=== PATIENT | male | born 1960 | race Caucasian/White ===

== ENCOUNTER 2017-11-29 20:12 | Inpatient (IN) | payer OTHER ==
[2017-11-29 21:35] LABS: ALT (SGPT) 41 U/L (8-55); AST (SGOT) 48 U/L (5-34); Albumin 4.2 g/dL (3.5-5.0); Alkaline Phosphatase 86 U/L (40-150); Anion Gap 15 mmol/L (10-20); BUN (Urea Nitrogen) 30 mg/dL (8.4-25.7); CK (CPK) 50 U/L (30-200); Calc. Creatinine Clearance 0 mL/min (70-130); Calcium 8.9 mg/dL (7.8-10.44); Carbon Dioxide 22 mmol/L (22-29); Chloride 102 mmol/L (98-107); Estimated GFR-MDRD 56; Globulin 1.7 g/dL (2.4-3.5); Glucose 115 mg/dL (70-105); Magnesium 2.5 mg/dL (1.6-2.6); Protein, Total 5.9 g/dL (6.0-8.3); Sodium 135 mmol/L (136-145)
[2017-11-29 21:42] LABS: CKMB 0.5 ng/mL (0-6.6)
[2017-11-29 22:18] LABS: Hemoglobin 4.7 g/dL (14.0-18.0); Mean Corpuscular HGB CONC 31.8 g/dL (32.0-36.0); Mean Corpuscular Hemoglobin 38.9 pg (27.0-31.0); Mean Platelet Volume 10.4 fL (7.4-10.4); Platelet Count 124 thou/uL (130-400); RBC Distribution Width 24.4 % (11.5-14.5); Red Blood Cell (RBC) Count 1.21 mill/uL (4.70-6.10)
[2017-11-29 22:19] LABS: INR-International Normal Ratio 1.2; Prothrombin Time 15.1 SEC (12.0-14.7)
[2017-11-29 22:28] LABS: PTT 22.4 SEC (22.9-36.1)
[2017-11-29 22:52] LABS: Anisocytosis MARKED = >30 cells (100X) (0-5/hpf); Band 9 % (5-11); Differential Comment Immature Cell(s); Eosinophils 1 % (0-10); Lymphocytes 32 % (21-51); MDiff Complete? YES; Macrocytosis MODERATE=16-30 cells (100X) (0-5/hpf); Monocytes 1 % (0-10); Myelocyte 2 % (0-0); Neutrophil 53 % (42-75); Nucleated RBC 63 % (0); Polychromasia MARKED = >4 cells (100X) (0-2/hpf); Reflex for Review?? YES
[2017-11-29 22:54] LABS: White Blood Cell (WBC) Count 17.1 thou/uL (4.8-10.8)
[2017-11-30] MEDS ORDERED: Pantoprazole 40 MG VIAL ONE (00:50)
[2017-11-30] MEDS ORDERED: methylPREDNISolone Sod Succ/PF 125 MG/2 ML VIAL ONE (00:50)
[2017-11-30] MEDS ORDERED: Water For Inject, Bacteriostat 30 ML ONE (00:51)
[2017-11-30 01:47] LABS: Bilirubin Negative (Negative); Blood, Urine Negative (Negative); Clarity CLEAR (Clear); Glucose, Urine (Dipstick) Negative (Negative); Leukocyte Negative (Negative); Nitrite Negative (Negative); Protein, Urine (Dipstick) Negative (Neg-Trace); Specific Gravity, Urine 1.016 (1.002-1.036)
[2017-11-30 01:48] LABS: Reticulocyte Count 24.7 % (0.5-1.5)
[2017-11-30 02:51] VITALS: BMI 33.5
[2017-11-30] MEDS ORDERED: Ondansetron HCl/PF 4 MG/2 ML Vial IVP PRN ×2 (02:55→10:39)
[2017-11-30] MEDS ORDERED: Acetaminophen 325 MG TAB PO PRN ×2 (02:55→10:39)
[2017-11-30] MEDS ORDERED: Ondansetron ODT 4 MG TAB SL PRN (02:55)
[2017-11-30 05:29] LABS: Folate (Folic Acid) 13.8 ng/mL (7.0-31.4)
[2017-11-30] MEDS ORDERED: methylPREDNISolone Sod Succ/PF 125 MG/2 ML VIAL IVP SCH (09:00)
[2017-11-30] MEDS ORDERED: Prevnar 13-Val Conj/PF 0.5 ML SYRINGE IM ONE (09:00)
[2017-11-30] MEDS ORDERED: Sodium Chloride 0.9% 10 ML ONE (09:33)
[2017-11-30] MEDS: Pantoprazole 40 MG VIAL IVP SCH (09:38)
[2017-11-30 09:49] LABS: ALT (SGPT) 36 U/L (8-55); AST (SGOT) 38 U/L (5-34); Alkaline Phosphatase 85 U/L (40-150); Anion Gap 16 mmol/L (10-20); BUN (Urea Nitrogen) 30 mg/dL (8.4-25.7); Bilirubin, Total 1.8 mg/dL (0.2-1.2); Calc. Creatinine Clearance 99 mL/min (70-130); Calcium 8.5 mg/dL (7.8-10.44); Carbon Dioxide 19 mmol/L (22-29); Chloride 103 mmol/L (98-107); Estimated GFR-MDRD 52; Globulin 1.6 g/dL (2.4-3.5); Glucose 294 mg/dL (70-105); Potassium 4.5 mmol/L (3.5-5.1); Protein, Total 5.6 g/dL (6.0-8.3); Sodium 133 mmol/L (136-145)
[2017-11-30 10:02] LABS: Hemoglobin 4.4 g/dL (14.0-18.0); Mean Corpuscular HGB CONC 30.2 g/dL (32.0-36.0); Mean Corpuscular Hemoglobin 37.9 pg (27.0-31.0); Platelet Count 132 thou/uL (130-400); RBC Distribution Width 25.6 % (11.5-14.5); Red Blood Cell (RBC) Count 1.17 mill/uL (4.70-6.10)
[2017-11-30] MEDS ORDERED: Guaifenesin DM 100-10/5 ML UDCUP PO PRN (10:39)
[2017-11-30 10:58] LABS: Band 18 % (5-11); Large Platelets SLIGHT; Lymphocytes 19 % (21-51); MDiff Complete? YES; Macrocytosis MODERATE=16-30 cells (100X) (0-5/hpf); Monocytes 5 % (0-10); Myelocyte 1 % (0-0); Neutrophil 57 % (42-75); Nucleated RBC 88 % (0); PLT Morphology Comment Appears Adequate; Polychromasia MARKED = >4 cells (100X) (0-2/hpf)
--- NOTE | 2017-11-30 11:13 | RAD ---
CHEST TWO VIEWS: History: Evaluate for infection. Comparison: 02-10-11 FINDINGS: Two views of the chest. Normal cardiac silhouette. The pulmonary vessels and hilum are normal. Costop hrenic angels are clear. No mass. No consolidation. No pneumothorax or osseous abnormality. IMPRESSION: No acute cardiopulmonary process. POS: [facility]
--- NOTE | 2017-11-30 12:11 | HP ---
REASON FOR ADMISSION: Hemolytic anemia, leukocytosis, and severe anemia. HISTORY OF PRESENT ILLNESS: The patient gives a history of feeling dizzy and weak from Tuesday. No complaints of chest pain or palpitations. No complaints of cough or expectoration or fever. No flu-like illness. The patient went to [facility] yesterday evening and was found to have had hemoglobin of 5. He was transferred here for higher level of care. Patient has history of ITP and follows up with Dr. Simon. No bleeding per rectum. PAST MEDICAL AND SURGICAL HISTORY: 1. History of ITP, which was well controlled on Rituxan, the last dose he had was in 2008 or 2010, which he cannot recall. 2. Hypertension. 3. Left lazy eye surgery. CURRENT MEDICATION: Lisinopril 20 mg daily. ALLERGIES: No known drug allergies. PERSONAL HISTORY: Chews tobacco. Drinks on social occasions. Does not abuse drugs. Lives with his . 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 FAMILY HISTORY: Mom of a lung cancer at the age of 83 years. Father in his 80s and has had history of diabetes and CHF. He has a half-brother, who has kidney stones. No history of hematological malignancies as far as patient knows in his immediate family members. CODE STATUS: FULL. 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 REVIEW OF SYSTEMS: The following complete review of systems was negative, unless otherwise mentioned in the HPI or below: Constitutional: Weight loss or gain, ability to conduct usual activities. Skin: Rash, itching. Eyes: Double vision, pain. ENT/Mouth: Nose bleeding, neck stiffness, pain, tenderness. Cardiovascular: Palpitations, dyspnea on exertion, orthopnea. Respiratory: Shortness of breath, wheezing, cough, hemoptysis, fever, or night sweats. Gastrointestinal: Poor appetite, abdominal pain, heartburn, nausea, vomiting, constipation, or diarrhea. Genitourinary: Urgency, frequency, dysuria, nocturia. Musculoskeletal: Pain, swelling. Neurologic/Psychiatric: Anxiety, depression. Allergy/Immunologic: Skin rash, bleeding tendency. PHYSICAL EXAMINATION: GENERAL: The patient is a 56-year-old male, who is currently not in any acute distress. VITAL SIGNS: Blood pressure 126/50, pulse 84 per minute, respiratory rate 20 per minute, temperature 98.5 degrees Fahrenheit, saturating 96% on room air. NECK: Supple, no elevated JVD. HEENT: Extraocular muscles intact. Pupils reacting to light. Oral cavity mucous membranes are moist. There is scleral icterus plus. No exudates or congestion in the oral cavity. CARDIOVASCULAR SYSTEM: S1, S2 heard. Regular rhythm. RESPIRATORY SYSTEM: Air entry 1+ bilateral. EXTREMITIES: No ischemic ulcerations or gangrene. CENTRAL NERVOUS SYSTEM: No gross focal deficits seen. Patient is alert, awake , oriented well. PSYCHIATRIC SYSTEM: The patient's mood is euthymic. No hallucinations or delusions. LABORATORY AND X-RAY FINDINGS: H and H 4.4 and 14, platelet count is 132. Had an initial white count of 47.9 at 2:43 p.m. yesterday in [place] with H and H of 6.5 and 45. He has 53% neutrophils, 18% bands, and 19% lymphocytes. Nucleated RBCs are 88. Also has a high retic count of 24.7, MCV is 122, MCHC is 32, RDW is 25, serum bicarbonate 19, BUN 30, creatinine 1.4, glucose is 294. Initial serum glucose was 115, likely due to steroids. Total bilirubin 3.0, AST 48, ALT 41, alkaline phosphatase 86. One set of cardiac enzymes are negative. LDH is elevated at 846. Albumin is 4.2. BNP is 36. Vitamin B12 457. Folic acid 13.8. EKG done shows normal sinus rhythm at 83 beats per minute. Chest x-ray, by my review, shows no acute infiltrate. His direct antiglobulin test is positive. His antibody screen is also positive. CLINICAL IMPRESSION AND PLAN: The patient will be admitted to oncology floor for severe anemia with direct Sonya test being positive and elevated LDH, haptoglobin is pending at present. He is on Solu-Medrol 60 mg IV q.12 hourly and Protonix 40 mg IV daily. A nuclear medicine scan to see for accessory spleen has been ordered by Oncology group. I did speak to Dr. Simon. They will make a decision whether to transfer him or to continue monitoring him here. We will also obtain acute hepatitis panel, HIV, and LISA with reflex, echo with 2D Doppler in view of wide pulse pressure. Two units of packed cell blood transfusion has been ordered from the ER from last night, but there is a delay in procuring blood due to antibodies. We will continue to closely monitor him. ORQUIDEA
--- NOTE | 2017-11-30 13:19 | NM ---
NUCLEAR MEDICINE LIVER SPLEEN SCAN: 11/30/2017 HISTORY: A 56-year-old male, status post splenectomy and hemolytic anemia. COMPARISON: Liver/spleen scan from 02/11/2011. TECHNIQUE: 5 millicuries of technetium 99m- sulfur colloid was injected IV. Multiple view scintigraphic images of the abdomen. 2 scintigraphic views of the pelvis. FINDINGS: There is homogeneous uptake in the liver. No evidence of hepatomegaly. No splenic tissue is visuali zed. No evidence of splenules. No interval change overall. IMPRESSION: 1. Absence of the spleen and absence of splenules. 2. No interval change since 02/11/2011. POS: [facility]
[2017-11-30] MEDS ORDERED: predniSONE 50 MG TAB PO SCH (15:00)
[2017-11-30 15:38] LABS: HBCM Index 0.06 S/CO (0-0.79); HBSAg Index 0.22 S/CO (0-0.99); HIV (1/2) Antibody/Antigen Non-Reactive (NonReactive); HIV 1/2 INDEX 0.36 S/CO (<1.00); Hep A IgM AB Non-Reactive (NonReactive); Hep B Surf Ag Non-Reactive S/CO (NonReactive); Hep C IgG Ab Non-Reactive (NonReactive); Hep C Index 0.04 S/CO (0-0.79); Hepatitis B Core IGM Abs Non-Reactive (NonReactive)
[2017-11-30] MEDS: predniSONE 20 MG TAB PO SCH ×2 (17:11→22:00)
[2017-11-30 19:36] LABS: Hemoglobin 4.6 g/dL (14.0-18.0)
[2017-12-01 06:30] LABS: ALT (SGPT) 30 U/L (8-55); AST (SGOT) 32 U/L (5-34); Albumin 3.9 g/dL (3.5-5.0); Alkaline Phosphatase 80 U/L (40-150); Anion Gap 13 mmol/L (10-20); BUN (Urea Nitrogen) 28 mg/dL (8.4-25.7); Bilirubin, Total 1.3 mg/dL (0.2-1.2); Calc. Creatinine Clearance 112 mL/min (70-130); Calcium 8.5 mg/dL (7.8-10.44); Carbon Dioxide 23 mmol/L (22-29); Chloride 105 mmol/L (98-107); Estimated GFR-MDRD 60; Globulin 1.6 g/dL (2.4-3.5); Glucose 215 mg/dL (70-105); Potassium 4.8 mmol/L (3.5-5.1); Protein, Total 5.5 g/dL (6.0-8.3); Sodium 136 mmol/L (136-145)
[2017-12-01 06:46] LABS: Hemoglobin 4.5 g/dL (14.0-18.0); Mean Corpuscular HGB CONC 29.8 g/dL (32.0-36.0); Mean Corpuscular Hemoglobin 38.7 pg (27.0-31.0); Mean Platelet Volume 11.7 fL (7.4-10.4); Platelet Count 66 thou/uL (130-400); RBC Distribution Width 26.8 % (11.5-14.5); Red Blood Cell (RBC) Count 1.17 mill/uL (4.70-6.10)
[2017-12-01 07:04] LABS: Band 5 % (5-11); Lymphocytes 25 % (21-51); Metamyelocyte 2 % (0-0); Monocytes 4 % (0-10); Neutrophil 64 % (42-75); Nucleated RBC 51 % (0)
[2017-12-01 07:06] LABS: Hypochromia SLIGHT = 6-15 cells (100X) (0-5/hpf); Macrocytosis MODERATE=16-30 cells (100X) (0-5/hpf); Polychromasia MODERATE = 3-4 cells (100X) (0-2/hpf)
[2017-12-01 07:07] LABS: PLT Morphology Comment Appears Decreased
[2017-12-01 07:10] LABS: White Blood Cell (WBC) Count 23.4 thou/uL (4.8-10.8)
[2017-12-01 07:14] LABS: MDiff Complete? YES
[2017-12-01 07:40] LABS: Reticulocyte Count 32.4 % (0.5-1.5)
[2017-12-01 07:51] LABS: LDH 828 U/L (125-220)
[2017-12-01] MEDS: Multivitamin W/ Minerals 1 TAB PO SCH (08:34)
[2017-12-01] MEDS: predniSONE 20 MG TAB PO SCH ×3 (08:34→20:54)
[2017-12-01] MEDS: Pantoprazole 40 MG VIAL IVP SCH (08:35)
[2017-12-01] MEDS ORDERED: diphenhydrAMINE 25 MG in Sodium Chloride 0.9% 50 ML IVPB PRN (09:00)
[2017-12-01] MEDS ORDERED: Acetaminophen 500 MG TAB PO SCH (09:00)
[2017-12-01] MEDS ORDERED: Lisinopril 20 MG TAB PO SCH (09:00)
--- NOTE | 2017-12-01 11:16 | PDOC.PN ---
- Subjective Encounter Start Date: 12/01/17 Encounter Start Time: 10:45 Subjective: no sob or bleeding anywhere -: no new complaints - Objective Resuscitation Status: Resuscitation Status FULL:Full Resuscitation MAR Reviewed: Yes Vital Signs & Weight: Vital Signs (12 hours) Temp Pulse Resp BP Pulse Ox 12/01/17 08:00 98.1 F 76 16 130/61 95 12/01/17 04:00 98.2 F 80 16 129/58 L 96 Weight Admit Weight 261 lb 7 oz Weight 261 lb 3.964 oz I&O: 11/30/17 12/01/17 12/02/17 06:59 06:59 06:59 Intake Total 1170 Output Total 2350 Balance -1180 Result Diagrams: 12/01/17 05:51 12/01/17 05:51 Phys Exam - Physical Examination HEENT: PERRLA, moist MMs Neck: no JVD, supple Respiratory: no wheezing, no rales Cardiovascular: RRR, no significant murmur Gastrointestinal: soft, non-tender, positive bowel sounds Musculoskeletal: no edema, pulses present Neurological: non-focal, moves all 4 limbs Psychiatric: normal affect, A&O x 3 Dx/Plan (1) Hemolytic anemia Code(s): D58.9 - HEREDITARY HEMOLYTIC ANEMIA, UNSPECIFIED Status: Acute Qualifiers: Hemolytic anemia type: acquired, autoimmune, other Qualified Code(s): D59.1 - Other autoimmune hemolytic anemias (2) Severe anemia Code(s): D64.9 - ANEMIA, UNSPECIFIED Status: Acute (3) H/O idiopathic thrombocytopenic purpura Code(s): Z86.2 - PRSNL HISTORY OF DIS OF THE BLD/BLD-FORM ORG/IMMUN MECHNSM Status: Chronic (4) HTN (hypertension) Code(s): I10 - ESSENTIAL (PRIMARY) HYPERTENSION Status: Chronic Qualifiers: Hypertension type: essential hypertension Qualified Code(s): I10 - Essential (primary) hypertension - Plan hospital is trying to get his rituxan for today -: has not recieved any blood products yet per onc advice -: has high retic count and +ve irene -: platelets are trending down this am in addition to Hb -: mgmt per onc advice, on prednisone 60mg tid * . Review of Systems - Medications/Allergies Allergies/Adverse Reactions: Allergies Allergy/AdvReac Type Severity Reaction Status Date / Time No Known Allergies Allergy Unverified 11/30/17 02:30 Medications: Current Medications Acetaminophen (Tylenol) 650 mg PO Q4H PRN PRN Reason: Headache/Fever or Pain Acetaminophen (Tylenol) 1,000 mg PO ONE SUHAS Stop: 12/01/17 23:00 Guaifenesin/Dextromethorphan (Robitussin Dm) 15 ml PO Q4H PRN PRN Reason: Cough Diphenhydramine HCl 25 mg/ (Sodium Chloride) 50.5 mls @ 151.5 mls/hr IVPB ONE PRN PRN Reason: Itching & Insomnia Stop: 12/01/17 17:00 Rituximab 896 mg/ Sodium (Chloride) 589.6 mls @ 0 mls/hr IVPB ONE SUHAS PRN Reason: As Directed Stop: 12/01/17 23:59 Iron/Minerals/Multivitamins (Theragran M) 1 tab PO DAILY [facility] Last Admin: 12/01/17 08:34 Dose: 1 tab Ondansetron HCl (Zofran) 4 mg IVP Q6H PRN PRN Reason: Nausea/Vomiting Pantoprazole Sodium (Protonix) 40 mg IVP DAILY [facility] Last Admin: 12/01/17 08:35 Dose: 40 mg Prednisone (Prednisone) 60 mg PO TID [facility] Last Admin: 12/01/17 08:34 Dose: 60 mg Sodium Chloride (Flush - Normal Saline) 10 ml IVF Q12HR [facility] Last Admin: 11/30/17 20:31 Dose: 10 ml Sodium Chloride (Flush - Normal Saline) 10 ml IVF PRN PRN PRN Reason: Saline Flush
[2017-12-01 11:22] LABS: Antinuclear AB Negative (Negative)
[2017-12-01] MEDS ORDERED: SODIUM CHLORIDE 0.9% IVPB SCH ×2 (12:00)
[2017-12-01] MEDS ORDERED: Rituximab 100 MG in Sodium Chloride 0.9% 100 ML IVPB SCH (12:00)
[2017-12-01] MEDS ORDERED: RITUXIMAB IVPB SCH ×2 (12:00)
[2017-12-01 19:53] LABS: Hemoglobin 4.8 g/dL (14.0-18.0)
[2017-12-02 05:31] LABS: Mean Corpuscular HGB CONC 30.7 g/dL (32.0-36.0); Mean Corpuscular Hemoglobin 41.1 pg (27.0-31.0); Platelet Count 36 thou/uL (130-400); RBC Distribution Width 26.1 % (11.5-14.5); Red Blood Cell (RBC) Count 1.23 mill/uL (4.70-6.10)
[2017-12-02 05:50] LABS: Band 6 % (5-11); Lymphocytes 21 % (21-51); MDiff Complete? YES; Microcytosis MODERATE=15-30 cells (100X) (0-5/hpf); Monocytes 2 % (0-10); Myelocyte 1 % (0-0); Neutrophil 70 % (42-75); Nucleated RBC 121 % (0); Ovalocytes SLIGHT = 2-5 cells (100X) (0-1/hpf); PLT Morphology Comment Appears Decreased; Polychromasia MARKED = >4 cells (100X) (0-2/hpf); Tear Drops SLIGHT = 2-5 cells (100X) (0-1/hpf)
[2017-12-02 07:07] LABS: White Blood Cell (WBC) Count 26.3 thou/uL (4.8-10.8)
[2017-12-02] MEDS: predniSONE 20 MG TAB PO SCH ×3 (08:07→20:32)
[2017-12-02] MEDS: Pantoprazole 40 MG VIAL IVP SCH (08:08)
[2017-12-02] MEDS: Multivitamin W/ Minerals 1 TAB PO SCH (08:08)
[2017-12-02 08:20] LABS: A/G Ratio 2.3 (0.7-1.7); Albumin 3.7 g/dL (2.9-4.4); Alpha 1 0.3 g/dL (0.0-0.4); Alpha 2 0.5 g/dL (0.4-1.0); Beta 0.7 g/dL (0.7-1.3); Gamma 0.2 g/dL (0.4-1.8); Globulin, Total 1.6 g/dL (2.2-3.9); M-Spike Not Observed g/dL (Not Observed)
[2017-12-02 09:13] LABS: Hemoglobin 5.3 g/dL (14.0-18.0)
--- NOTE | 2017-12-02 14:37 | PDOC.PN ---
- Subjective Encounter Start Date: 12/02/17 Encounter Start Time: 10:00 Subjective: no sob or abd pain -: no bleeding - Objective Resuscitation Status: Resuscitation Status FULL:Full Resuscitation MAR Reviewed: Yes Vital Signs & Weight: Vital Signs (12 hours) Temp Pulse Resp BP Pulse Ox 12/02/17 11:40 97.7 F 80 24 H 158/70 H 100 12/02/17 08:00 98.1 F 75 20 98 12/02/17 07:20 98.1 F 75 20 140/67 98 Weight Admit Weight 261 lb 7 oz Weight 261 lb 3.964 oz I&O: 12/01/17 12/02/17 12/03/17 06:59 06:59 06:59 Intake Total 1170 750 Output Total 2350 1400 Balance -1180 -650 Result Diagrams: 12/02/17 08:48 12/01/17 05:51 Phys Exam - Physical Examination HEENT: PERRLA, moist MMs Neck: no JVD, supple Respiratory: no wheezing, no rales Cardiovascular: RRR, no significant murmur Gastrointestinal: soft, non-tender, positive bowel sounds Musculoskeletal: no edema, pulses present Neurological: non-focal, moves all 4 limbs Psychiatric: A&O x 3 Dx/Plan (1) Hemolytic anemia Code(s): D58.9 - HEREDITARY HEMOLYTIC ANEMIA, UNSPECIFIED Status: Acute Qualifiers: Hemolytic anemia type: acquired, autoimmune, other Qualified Code(s): D59.1 - Other autoimmune hemolytic anemias (2) Severe anemia Code(s): D64.9 - ANEMIA, UNSPECIFIED Status: Acute (3) H/O idiopathic thrombocytopenic purpura Code(s): Z86.2 - PRSNL HISTORY OF DIS OF THE BLD/BLD-FORM ORG/IMMUN MECHNSM Status: Chronic (4) HTN (hypertension) Code(s): I10 - ESSENTIAL (PRIMARY) HYPERTENSION Status: Chronic Qualifiers: Hypertension type: essential hypertension Qualified Code(s): I10 - Essential (primary) hypertension - Plan is on prednisone 60mg tid -: received one dose of rituxan yesterday -: watch for platelet count, its 33 -: haptoglobin is <10mg and reitc count is 35% -: d/w Ms.Julie Hyde * . Review of Systems - Medications/Allergies Allergies/Adverse Reactions: Allergies Allergy/AdvReac Type Severity Reaction Status Date / Time No Known Allergies Allergy Unverified 11/30/17 02:30 Medications: Current Medications Acetaminophen (Tylenol) 650 mg PO Q4H PRN PRN Reason: Headache/Fever or Pain Guaifenesin/Dextromethorphan (Robitussin Dm) 15 ml PO Q4H PRN PRN Reason: Cough Iron/Minerals/Multivitamins (Theragran M) 1 tab PO DAILY [facility] Last Admin: 12/02/17 08:08 Dose: 1 tab Ondansetron HCl (Zofran) 4 mg IVP Q6H PRN PRN Reason: Nausea/Vomiting Pantoprazole Sodium (Protonix) 40 mg IVP DAILY [facility] Last Admin: 12/02/17 08:08 Dose: 40 mg Prednisone (Prednisone) 60 mg PO TID [facility] Last Admin: 12/02/17 08:07 Dose: 60 mg Sodium Chloride (Flush - Normal Saline) 10 ml IVF Q12HR [facility] Last Admin: 12/02/17 08:10 Dose: 10 ml Sodium Chloride (Flush - Normal Saline) 10 ml IVF PRN PRN PRN Reason: Saline Flush Last Admin: 12/02/17 08:16 Dose: 10 ml
[2017-12-02] MEDS: hydrALAZINE 20 MG/ML VIAL SLOW IVP PRN (21:33)
[2017-12-02 22:58] LABS: Hemoglobin 4.6 g/dL (14.0-18.0)
[2017-12-03 04:26] LABS: Reticulocyte Count 35.5 % (0.5-1.5)
[2017-12-03 04:31] LABS: Hemoglobin 5.9 g/dL (14.0-18.0)
[2017-12-03 04:49] LABS: Mean Corpuscular HGB CONC 30.2 g/dL (32.0-36.0); Mean Corpuscular Hemoglobin 40.9 pg (27.0-31.0); Mean Platelet Volume 13.7 fL (7.4-10.4); Platelet Count 33 thou/uL (130-400); RBC Distribution Width 25.5 % (11.5-14.5); Red Blood Cell (RBC) Count 1.43 mill/uL (4.70-6.10)
[2017-12-03 04:54] LABS: Band 14 % (5-11); Neutrophil 76 % (42-75); Nucleated RBC 94 % (0)
[2017-12-03 04:55] LABS: Metamyelocyte 3 % (0-0); Monocytes 7 % (0-10)
[2017-12-03 04:59] LABS: White Blood Cell (WBC) Count 16.6 thou/uL (4.8-10.8)
[2017-12-03 05:03] LABS: MDiff Complete? YES; PLT Morphology Comment Appears Decreased
[2017-12-03] MEDS: predniSONE 20 MG TAB PO SCH ×2 (08:37→21:17)
[2017-12-03] MEDS: Multivitamin W/ Minerals 1 TAB PO SCH (08:37)
[2017-12-03] MEDS: Pantoprazole 40 MG VIAL IVP SCH (08:38)
[2017-12-03 09:22] LABS: Hemoglobin 6.1 g/dL (14.0-18.0)
--- NOTE | 2017-12-03 10:14 | PDOC.PN ---
- Subjective Encounter Start Date: 12/03/17 Encounter Start Time: 10:00 Subjective: no complaints -: is amb in room, no sob - Objective Resuscitation Status: Resuscitation Status FULL:Full Resuscitation MAR Reviewed: Yes Vital Signs & Weight: Vital Signs (12 hours) Temp Pulse Resp BP BP Pulse Ox 12/03/17 08:00 97.8 F 62 14 99 12/03/17 07:00 97.8 F 62 14 143/66 H 99 12/03/17 04:00 61 115/57 L 12/02/17 22:44 79 18 144/63 H Weight Admit Weight 261 lb 7 oz Weight 261 lb 3.964 oz I&O: 12/02/17 12/03/17 12/04/17 06:59 06:59 06:59 Intake Total 750 2380 Output Total 1400 Balance -650 2380 Result Diagrams: 12/03/17 08:57 12/01/17 05:51 Phys Exam - Physical Examination HEENT: PERRLA, moist MMs Neck: no JVD, supple Respiratory: no wheezing, no rales Cardiovascular: RRR, no significant murmur Gastrointestinal: soft, non-tender, positive bowel sounds Musculoskeletal: no edema, pulses present Neurological: non-focal, moves all 4 limbs Psychiatric: A&O x 3 Dx/Plan (1) Hemolytic anemia Code(s): D58.9 - HEREDITARY HEMOLYTIC ANEMIA, UNSPECIFIED Status: Acute Qualifiers: Hemolytic anemia type: acquired, autoimmune, other Qualified Code(s): D59.1 - Other autoimmune hemolytic anemias (2) Severe anemia Code(s): D64.9 - ANEMIA, UNSPECIFIED Status: Acute (3) H/O idiopathic thrombocytopenic purpura Code(s): Z86.2 - PRSNL HISTORY OF DIS OF THE BLD/BLD-FORM ORG/IMMUN MECHNSM Status: Chronic (4) HTN (hypertension) Code(s): I10 - ESSENTIAL (PRIMARY) HYPERTENSION Status: Chronic Qualifiers: Hypertension type: essential hypertension Qualified Code(s): I10 - Essential (primary) hypertension - Plan recieved 1 dose of rituxan on 12/01/2017 -: is on prednisone 60mg tid -: watch for cbc -: Hb is steadily improving without transfusions, platelets holding up around -: 33, is on protonix. DC plan when cbc parameters improve * . Review of Systems - Medications/Allergies Allergies/Adverse Reactions: Allergies Allergy/AdvReac Type Severity Reaction Status Date / Time No Known Allergies Allergy Unverified 11/30/17 02:30 Medications: Current Medications Acetaminophen (Tylenol) 650 mg PO Q4H PRN PRN Reason: Headache/Fever or Pain Guaifenesin/Dextromethorphan (Robitussin Dm) 15 ml PO Q4H PRN PRN Reason: Cough Hydralazine HCl (Apresoline) 10 mg SLOW IVP Q4H PRN PRN Reason: SBP Greater Than 170 Last Admin: 12/02/17 21:33 Dose: 10 mg Iron/Minerals/Multivitamins (Theragran M) 1 tab PO DAILY [facility] Last Admin: 12/03/17 08:37 Dose: 1 tab Ondansetron HCl (Zofran) 4 mg IVP Q6H PRN PRN Reason: Nausea/Vomiting Pantoprazole Sodium (Protonix) 40 mg IVP DAILY [facility] Last Admin: 12/03/17 08:38 Dose: 40 mg Prednisone (Prednisone) 60 mg PO TID [facility] Last Admin: 12/03/17 08:37 Dose: 60 mg Sodium Chloride (Flush - Normal Saline) 10 ml IVF Q12HR [facility] Last Admin: 12/03/17 08:38 Dose: 10 ml Sodium Chloride (Flush - Normal Saline) 10 ml IVF PRN PRN PRN Reason: Saline Flush Last Admin: 12/02/17 21:34 Dose: 10 ml
[2017-12-03] MEDS ORDERED: predniSONE 50 MG TAB PO SCH (21:00)
[2017-12-04 05:56] LABS: Reticulocyte Count 33.2 % (0.5-1.5)
[2017-12-04 06:19] LABS: Band 13 % (5-11); Hemoglobin 6.3 g/dL (14.0-18.0); Hypochromia SLIGHT = 6-15 cells (100X) (0-5/hpf); Lymphocytes 9 % (21-51); MDiff Complete? YES; Macrocytosis SLIGHT = 6-15 cells (100X) (0-5/hpf); Mean Corpuscular HGB CONC 30.6 g/dL (32.0-36.0); Mean Corpuscular Hemoglobin 41.8 pg (27.0-31.0); Mean Platelet Volume 14.4 fL (7.4-10.4); Monocytes 5 % (0-10); Neutrophil 73 % (42-75); Nucleated RBC 117 % (0); PLT Morphology Comment Appears Decreased; Platelet Count 30 thou/uL (130-400); RBC Distribution Width 24.4 % (11.5-14.5); Red Blood Cell (RBC) Count 1.51 mill/uL (4.70-6.10); White Blood Cell (WBC) Count 9.7 thou/uL (4.8-10.8)
[2017-12-04] MEDS: predniSONE 20 MG TAB PO SCH ×2 (09:36→20:37)
[2017-12-04] MEDS: Multivitamin W/ Minerals 1 TAB PO SCH (09:36)
[2017-12-04] MEDS: Pantoprazole 40 MG VIAL IVP SCH ×2 (09:36→12:39)
--- NOTE | 2017-12-04 14:43 | PDOC.PN ---
- Subjective Encounter Start Date: 12/04/17 Encounter Start Time: 14:42 Subjective: no CO - Objective Resuscitation Status: Resuscitation Status FULL:Full Resuscitation MAR Reviewed: Yes Vital Signs & Weight: Vital Signs (12 hours) Temp Pulse Resp BP Pulse Ox 12/04/17 08:00 96.5 F L 57 L 16 188/80 H 100 Weight Admit Weight 261 lb 7 oz Weight 261 lb 3.964 oz I&O: 12/03/17 12/04/17 12/05/17 06:59 06:59 06:59 Intake Total 2380 1690 Balance 2380 1690 Result Diagrams: 12/04/17 05:41 12/01/17 05:51 Phys Exam - Physical Examination Constitutional: NAD Neck: no JVD Respiratory: clear to auscultation bilateral Cardiovascular: RRR, no significant murmur Gastrointestinal: soft, positive bowel sounds Musculoskeletal: no edema Dx/Plan (1) Hemolytic anemia Code(s): D58.9 - HEREDITARY HEMOLYTIC ANEMIA, UNSPECIFIED Status: Acute Qualifiers: Hemolytic anemia type: acquired, autoimmune, other Qualified Code(s): D59.1 - Other autoimmune hemolytic anemias (2) Severe anemia Code(s): D64.9 - ANEMIA, UNSPECIFIED Status: Acute (3) H/O idiopathic thrombocytopenic purpura Code(s): Z86.2 - PRSNL HISTORY OF DIS OF THE BLD/BLD-FORM ORG/IMMUN MECHNSM Status: Chronic (4) HTN (hypertension) Code(s): I10 - ESSENTIAL (PRIMARY) HYPERTENSION Status: Chronic Qualifiers: Hypertension type: essential hypertension Qualified Code(s): I10 - Essential (primary) hypertension - Plan cont current plan of care cont serial CBC * .
--- NOTE | 2017-12-04 22:03 | CON-2 ---
DATE OF CONSULTATION: 11/30/2017 REASON FOR CONSULTATION: Severe anemia. HISTORY OF PRESENT ILLNESS: Mr. Serna is a 56-year-old male who was diagnosed ITP in 01/06. He initially responded to steroids, but his platelet count decreased when the steroid was disco ntinued. The platelet count was 15,000 when his prednisone dose was decreased to 5 mg daily. He und erwent a laparoscopic splenectomy in 01/2011. Following a splenectomy, the highest platelet count wa s 47,000 and decreased to single digits soon. He was treated with Rituxan weekly x4 starting 02/12 a nd finished on 03/05. He had a favorable response to Rituxan and maintained a normal platelet count and hemoglobin. His white cell count has been towards the higher side as would be expected from sple nectomy. The last CBC on record is from 05/31/2017 when he had WBC of 11.2 with hemoglobin of 14.1 g prasanna and platelet count of 252,000. He was found to have developed lymphocytosis starting 07/2016 wh en his lymphocyte count was 53% with a total WBC of 12.9. The patient was admitted on 11/30/2017 with complaints of weakness and dizziness. He was initially s een in [place] and was found to have a hemoglobin of 5 and was transferred to [facility]. The patient did not have any fever or cough. He denied of any bleeding. He has been physically ac tive a few days prior to hospitalization. PAST MEDICAL HISTORY: Positive for ITP, hypertension, and surgery for lazy left eye. OUTPATIENT MEDICATIONS: Lisinopril 20 mg daily. The patient has not been started on a new medicine recently. DRUGS WITH ADVERSE EFFECT: None. 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 He lives with his . FAMILY HISTORY: His mother with lung cancer and father had diabetes and CHF. There is n o history of blood disorders in the family. REVIEW OF SYSTEMS: A ten-point system review was performed and the positive findings were what have already been mentioned in the history of present illness. PHYSICAL EXAMINATION: GENERAL: The patient appears appropriate for his age and is alert and oriented. VITAL SIGNS: Temperature 98.7, pulse 72, respirations 18, blood pressure 140/65. HEENT: Unremarkable. LYMPHATICS: There is no peripheral lymphadenopathy in the cervical, supraclavicular, axillary, or in guinal area. CHEST: Vesicular breathing of equal intensity bilaterally. No rales or rhonchi. CARDIOVASCULAR: S1, S2. No murmur. Rhythm is regular. ABDOMEN: Without masses or tenderness. Bowel sounds normal. EXTREMITIES: Without pedal edema. LABORATORY DATA: CBC shows WBC of 23.4, with a hemoglobin of 4.5 grams, MCV of 130, platelet counts 66,000. Differential shows 64 neutrophils, 5 bands, 25 lymphocytes, and 2 monocytes. There were 2% metamyelocytes. Nucleated RBC 51. Reticulocyte count 32%. Haptoglobin less than 10. Chemistry pro file showed normal electrolytes. BUN 30, creatinine 1.32, glucose 115, total bilirubin. Liver enzym es essentially normal except for slight elevation of AST to 48. LDH elevated at 496. B12 and folic acid levels are normal. Peripheral smear was reviewed. It showed a marked increase in reticulocytes and nucleated RBC. Numerous polychromatophilic cells were identified. There was no red cell fragme ntation. Platelets were decreased. The white cells were increased in number. There was some left s hift. However, no blasts or promyelocytes were seen and maturation sequence was normal. ASSESSMENT AND RECOMMENDATION: This patient has a history of idiopathic thrombocytopenic purpura whi ch has gone into remission following Rituxan. He had a brief response to steroid, but platelet count s decreased to around 15,000 when the steroid was tapered to 5 mg a day. Following a splenectomy, hi s highest platelet count was 47,000. However, he went into remission following 4 weeks of Rituxan. Currently, his problem is hemolytic anemia. This is Sonya positive and he has warm reactive antibod y. However, he will be started on prednisone 1.5 mg/kg body weight and will also receive Rituxan. Benjamin gregorio should be on bed rest. He might need to be transfused with the least incompatible unit if his hemo globin declines further. I have discussed the case with the nurses and have explained to them that benjamin gregorio should not receive a transfusion unless it is cleared by me or one of my partners.
[2017-12-05 05:48] LABS: Reticulocyte Count 32.7 % (0.5-1.5)
[2017-12-05 06:21] LABS: Anisocytosis MARKED = >30 cells (100X) (0-5/hpf); Band 1 % (5-11); Hemoglobin 7.3 g/dL (14.0-18.0); Lymphocytes 16 % (21-51); MDiff Complete? YES; Macrocytosis SLIGHT = 6-15 cells (100X) (0-5/hpf); Mean Corpuscular HGB CONC 30.6 g/dL (32.0-36.0); Mean Corpuscular Hemoglobin 41.3 pg (27.0-31.0); Mean Platelet Volume 16.2 fL (7.4-10.4); Monocytes 7 % (0-10); Neutrophil 75 % (42-75); Nucleated RBC 171 % (0); PLT Morphology Comment Appears Decreased; Platelet Count 33 thou/uL (130-400); Polychromasia MARKED = >4 cells (100X) (0-2/hpf); Reactive Lymphocytes 1 % (0-10); Red Blood Cell (RBC) Count 1.77 mill/uL (4.70-6.10); Schistocytes SLIGHT = 2-5 cells (100X) (0-1/hpf); Spherocytes SLIGHT = 1-5 cells (100X) (None Seen); White Blood Cell (WBC) Count 7.5 thou/uL (4.8-10.8)
[2017-12-05 08:15] VITALS: TEMP 97.3
[2017-12-05] MEDS: predniSONE 20 MG TAB PO SCH (08:42)
[2017-12-05] MEDS: Multivitamin W/ Minerals 1 TAB PO SCH (08:43)
[2017-12-05] MEDS: hydrALAZINE 20 MG/ML VIAL SLOW IVP PRN (08:44)
[2017-12-05] MEDS ORDERED: Amlodipine 5 MG TAB PO SCH (09:15)
--- NOTE | 2017-12-05 10:45 | DIS ---
DATE OF ADMISSION: 11/30/2017 DATE OF DISCHARGE: 12/05/2017 PRIMARY CARE PROVIDER: In [place], Dr. Tijerina. DISPOSITION: Discharged home. FINAL DIAGNOSES: Osnya positive hemolytic anemia, history of thrombotic thrombocytopenic purpura, s evere anemia related to primary process, hypertension. DISCHARGE MEDICATIONS: Prednisone 60 mg p.o. b.i.d. He is on Prilosec 40 mg p.o. daily over the cou nter. He is on Norvasc 5 mg p.o. daily. ALLERGIES: None. PENDING AT THE TIME OF DISCHARGE: Nothing. CODE STATUS: FULL. HOSPITAL COURSE: [facility] from [place]. He was found to have a severe anemia and thrombocytopenia. He has a history o f TTP treated with Rituxan in the past. Only current medicine was lisinopril 20 mg a day. His hemog lobin was 4.4, platelet count 132,000, initial white count of 48,000. He had a high retic count, BUN 30, creatinine 1.4. He was found to have Sonya positive hemolytic anemia. He was seen in consulta tion by Dr. Erlinda Simon. He was placed on high dose steroids, started on Rituxan. Serial counts were monitored. On 12/01/2017, hemoglobin 4.8. On 12/02/2017, white count 26.3, hemoglobin 5.0, nehemias telet count 36,000. On 12/03/2017, hemoglobin 5.9, white count 16.6, and platelet count 33,000. Tod ay, his white count is 7.5, hemoglobin 7.3, platelet count is 33,000. He is being discharged. CONSULTATION: Dr. Simon. PROCEDURES: None. FOLLOWUP: Follow up would be with Dr. Simon, 12/08/2017. Prescriptions have been written. He wi ll be reevaluated and received Rituxan if appropriate at that time.
[2017-12-05 11:41] VITALS: BP 182/79
[2017-12-06] MEDS ORDERED: Amlodipine 5 MG TAB PO SCH (09:00)
--- NOTE | 2017-12-10 13:43 | EKG ---
Test Reason : Blood Pressure : / mmHG Vent. Rate : 083 BPM Atrial Rate : 083 BPM P-R Int : 126 ms QRS Dur : 096 ms QT Int : 408 ms P-R-T Axes : 018 007 058 degrees QTc Int : 479 ms Normal sinus rhythm Normal ECG Confirmed by EBONI ROGEL ([id number]), fan mail editor PATRICIA LOW ([id number]) on 12/10/2017 1:42:53 PM Referred By: Confirmed By:EBONI ROGEL
== END 2017-12-05 12:17 | disposition home or self-care (01) | DRG 810 ==
LOC: ERS 20:12 → ONC 11-30 01:05
PROVIDERS: ADMIT Internal Medicine Infectious Disease; ATTEND Internal Medicine Infectious Disease
PROC: [UNRECOGNIZED PROCEDURE] (principal; 2017-11-30)
PROC: 3E0330M Introduction of Antineoplastic, Monoclonal Antibody, into Peripheral Vein, Percutaneous Approach (ICD-10-PCS; 2017-12-01)
DX: D59.1 Other autoimmune hemolytic anemias (principal); D69.6 Thrombocytopenia, unspecified; F17.220 Nicotine dependence, chewing tobacco, uncomplicated; I10 Essential (primary) hypertension; Z92.21 Personal history of antineoplastic chemotherapy; Z86.2 Personal history of diseases of the blood and blood-forming organs and certain disorders involving the immune mechanism
CPT/HCPCS: 36415; 36416; 71046; 78215; 80053; 80074; 81003; 82247; 82248; 82553; 82607; 82746; 83010; 83605; 83615; 83735; 83880; 84165; 84484; 85025; 85046; 85060; 85610; 85730; 86038; 86430; 86850; 86860; 86870; 86880; 86900; 86901; 86905; 86922; 86970; 86978; 87389; 88184; 93005; 93306; 96361; 96374; 96375; 99406; A4216; A9541; C9113; J0360; J1200; J2930; J7050; J7506; J9310

== ENCOUNTER 2017-12-08 10:05 | Day surgery (SDC) | payer OTHER ==
[2017-12-08] MEDS ORDERED: Acetaminophen 500 MG TAB PO SCH (10:30)
[2017-12-08] MEDS ORDERED: ADMIXTURE FEE IVPB SCH (10:30)
[2017-12-08] MEDS ORDERED: SODIUM CHLORIDE 0.9% IVPB SCH (10:30)
[2017-12-08] MEDS ORDERED: RITUXIMAB IVPB SCH ×2 (10:30)
[2017-12-08] MEDS ORDERED: diphenhydrAMINE 25 MG, Admixture Fee 1 EACH in Sodium Chloride 0.9% 50 ML IVPB SCH (10:30)
[2017-12-08] MEDS ORDERED: SODIUM CHLORIDE IVPB SCH (10:30)
[2017-12-08 10:52] VITALS: BP 135/65; TEMP 98.9
[2017-12-08] MEDS ORDERED: Sodium Chloride 0.9% 20 ML ONE (11:47)
== END 2017-12-08 16:06 | disposition home or self-care (01) ==
LOC: ONC/OP 10:05
PROVIDERS: ATTEND Internal Medicine Medical Oncology
DX: Z51.11 Encounter for antineoplastic chemotherapy (principal); D69.3 Immune thrombocytopenic purpura; I10 Essential (primary) hypertension; Z79.52 Long term (current) use of systemic steroids; Z79.899 Other long term (current) drug therapy
CPT/HCPCS: 96367; 96413; 96415; A4216; J1200; J7050; J9310

== ENCOUNTER 2017-12-15 12:09 | Day surgery (SDC) | payer OTHER ==
[2017-12-15] MEDS ORDERED: Acetaminophen 500 MG TAB PO SCH (12:30)
[2017-12-15] MEDS ORDERED: ADMIXTURE FEE IVPB SCH (12:30)
[2017-12-15] MEDS ORDERED: SODIUM CHLORIDE IVPB SCH (12:30)
[2017-12-15] MEDS ORDERED: diphenhydrAMINE 50 MG/ML VIAL IVP SCH (12:30)
[2017-12-15] MEDS ORDERED: RITUXIMAB IVPB SCH ×2 (12:30→12:45)
[2017-12-15] MEDS ORDERED: SODIUM CHLORIDE 0.9% IVPB SCH (12:45)
== END 2017-12-15 16:49 | disposition home or self-care (01) ==
LOC: ONC/OP 12:09
PROVIDERS: ATTEND Internal Medicine Medical Oncology
DX: Z51.11 Encounter for antineoplastic chemotherapy (principal); D69.3 Immune thrombocytopenic purpura; F17.210 Nicotine dependence, cigarettes, uncomplicated; Z79.52 Long term (current) use of systemic steroids; Z79.899 Other long term (current) drug therapy; Z90.49 Acquired absence of other specified parts of digestive tract; Z90.81 Acquired absence of spleen
CPT/HCPCS: 96375; 96413; 96415; A4216; J1200; J7050; J9310

== ENCOUNTER 2017-12-22 08:00 | Inpatient (IN) | payer OTHER ==
[2017-12-22] MEDS ORDERED: Mag-Al 1200 mg/1200 mg/30 ML UDCUP PO PRN (14:49)
[2017-12-22] MEDS ORDERED: Ondansetron HCl/PF 4 MG/2 ML Vial IVP PRN (14:49)
[2017-12-22] MEDS ORDERED: Sodium Chloride 0.65% Nasal 44 ML BOT EA NARE PRN (14:49)
[2017-12-22] MEDS ORDERED: Artificial Tear Sol 15 ML BOT EA EYE PRN (14:49)
[2017-12-22] MEDS ORDERED: hydrALAZINE 20 MG/ML VIAL SLOW IVP PRN (14:49)
[2017-12-22] MEDS ORDERED: Diabetic Tussin 200 MG/10 ML UDCUP PO PRN (14:49)
[2017-12-22] MEDS ORDERED: Senokot 8.6 MG TAB PO PRN (14:49)
[2017-12-22] MEDS ORDERED: Milk Of Magnesia 30 ML UDCUP PO PRN (14:49)
[2017-12-22] MEDS ORDERED: Zolpidem Tartrate 5 MG TAB PO PRN (14:49)
[2017-12-22] MEDS ORDERED: Labetalol HCl 100 MG/20 ML VIAL SLOW IVP PRN (14:49)
[2017-12-22] MEDS ORDERED: Ondansetron ODT 4 MG TAB PO PRN (14:49)
[2017-12-22] MEDS ORDERED: diphenhydrAMINE 50 MG/ML VIAL IVP PRN (14:49)
[2017-12-22] MEDS ORDERED: Chloraseptic Spray 180 ml Bottle PO PRN (14:49)
[2017-12-22] MEDS ORDERED: Eucerin (Mineral Oil/Petrolatum,White) 30 gm Jar TOP PRN (14:49)
[2017-12-22] MEDS ORDERED: Loperamide HCl 2 MG CAP PO PRN (14:49)
[2017-12-22] MEDS ORDERED: Acetaminophen 325 MG TAB PO PRN (14:49)
--- NOTE | 2017-12-22 15:12 | HP ---
PRIMARY CARE PHYSICIAN: John Martinez, Family Nurse Practitioner. REASON FOR ADMISSION: Skin rash. HISTORY OF PRESENT ILLNESS: A 57-year-old male who has history of idiopathic thrombocytopenic purpura, which was diagnosed in 01/10/2010. At that time, patient developed large bruits after a fall from his truck in [place] and platelet count found 1000. Initially, he responded treatment with steroid. Patient was taking high dose of prednisone and subsequently prednisone dose was tapered. When prednisone dose was tapered and at that time his platelet count also started dropping. He underwent laparoscopic splenectomy in 2010. After splenectomy, his platelet count was improving. Subsequently, he was given 4 doses of Rituxan therapy in 02/2011. The patient had another hospitalization in our hospital on 11/2017. At that time, his platelet count was 33. The patient has recently finished 3 doses of Rituxan therapy and he was due for 4th Rituxan therapy, but 2 weeks ago, patient started developing blister lesion which was predominantly in both thigh and that blister was gradually getting bigger and ruptured and getting underlying erythematous rash. He also had this type of rash on his right elbow , trunk, and buttock. This rash is very itchy, burning and giving discomfort. It was very difficult for him to sleep because of that rash. Today, patient had regular visit with skin doctor. He was referred by oncologist and he has a skin biopsy done by Dr. Zhang. Subsequently, he saw Dr. Simon and Dr. Simon decided to keep this patient in the hospital for further evaluation and treatment. Patient denies any fever or chills. He denies any other medications. He denies any chest pain, palpitations, or UTI symptoms. He denies any constipation, diarrhea, melena or hematochezia. REVIEW OF SYSTEMS: The following complete review of systems was negative, unless otherwise mentioned in the HPI or below: Constitutional: Weight loss or gain, ability to conduct usual activities. Skin: Rash, itching. Eyes: Double vision, pain. ENT/Mouth: Nose bleeding, neck stiffness, pain, tenderness. Cardiovascular: Palpitations, dyspnea on exertion, orthopnea. Respiratory: Shortness of breath, wheezing, cough, hemoptysis, fever or night sweats. Gastrointestinal: Poor appetite, abdominal pain, heartburn, nausea, vomiting, constipation, or diarrhea. Genitourinary: Urgency, frequency, dysuria, nocturia. Musculoskeletal: Pain, swelling. Neurologic/Psychiatric: Anxiety, depression. Allergy/Immunologic: Skin rash, bleeding tendency. Please see my HPI for pertinent positive and negative. All other review of systems reviewed and negative except as mentioned in the HPI. PAST MEDICAL HISTORY: 1. ITP, which was initially controlled with steroid and subsequently he was also given Rituxan therapy as well as he required laparoscopic splenectomy. Patient also recently finished 3 doses of digoxin therapy. 2. Hypertension. PAST SURGICAL HISTORY: Laparoscopic splenectomy, cholecystectomy, and left eye surgery. ALLERGIES: No known drug allergies. SOCIAL HISTORY: The patient chews tobacco. He drinks alcohol socially. He denies any other illicit drug abuse. He is and lives with his . 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 FAMILY HISTORY: Mother from lung cancer by age of 83. Father in his 80s and had diabetes and congestive heart failure. No strong family history of hematological malignancies in the immediate family members. CURRENT HOME MEDICATIONS: Prednisone 60 mg in the morning and 20 mg in afternoon time, amlodipine 5 mg p.o. daily. PAST PSYCHIATRIC HISTORY: Reviewed and negative. PHYSICAL EXAMINATION: VITAL SIGNS: Currently, blood pressure 168/104, pulse 77, respiratory rate 18, saturation 96% on room air, weight 254 pounds. GENERAL: Patient is currently alert, awake, no obvious acute distress. HEAD: Normocephalic, atraumatic. EYES: Pupils round, reactive to light. Extraocular muscle intact. ENT: Oropharynx within normal limits. Moist mucous membranes. No oral lesions. No pharyngeal erythema, no exudate. NECK: Supple, no JVD, no thyromegaly, no carotid bruit, no jugular venous distention. LUNGS: Clear to auscultation without any rhonchi or rales. CARDIAC: S1 and S2 regular without any significant murmur. ABDOMEN: Soft, bowel sounds present, obesity present. No peritoneal signs, no suprapubic tenderness. BACK: Examination unremarkable, no CVA tenderness. EXTREMITIES: Upper extremity passive movements of all joints are normal. Lower extremities: No edema. Good peripheral pulsation. SKIN: Please see wound care team notes for further details. I have reviewed entire skin on his body and predominantly he has a rash, which is erythematous and exfoliations of skin around both thigh as well as on the torso of the posterior aspect, buttock and extremity. For further details, please see wound care team notes for wound care finding. NEUROLOGIC: Nonfocal examination. SIGNIFICANT LABORATORY DATA: At this point, we do not have any new labs available, but we have reviewed most recent labs. WBC count 18.4, hemoglobin 11.4, platelet count 12 and then today's lab test is WBC count 19.3, hemoglobin 12.2, platelet 27. ASSESSMENT AND PLAN/IMPRESSION: 1. Skin rash. 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 The patient has already seen skin quality control and biopsy is obtained. We will follow up on biopsy report and we will do direct treatment based on biopsy finding. At this point because of generalized nature of rash and intensity of rash, we will consult Wound Care team for wound management. We will try to avoid any superinfection, but clinically at this point, patient does not have any superinfection. We will continue steroid 80 mg per day, prednisone orally. 2. Idiopathic thrombocytopenic purpura and hemolytic anemia. At this point, the patient is on prednisone 80 mg per day. Further decision will defer to Hematology. 3. Deep venous thrombosis prophylaxis, sequential compression device boots. No Lovenox because of low platelet count. 4. Hypertension. We will continue amlodipine 5 mg p.o. daily. 5. Obesity. Dietary education given, weight loss education given. Healthy lifestyle measures discussed with the patient. 6. Tobacco chew. Patient is given counseling to avoid chewing of tobacco. 7. Code status: The patient is FULL CODE. The patient is making his decision by himself. He does not have any surrogate decision maker. Disposition plan based on clinical course. We are expecting patient's stay in the hospital more than 2 midnights. Plan of care discussed with the patient in detail. MTDD
[2017-12-22 15:55] VITALS: BMI 33.0
[2017-12-22] MEDS: predniSONE 20 MG TAB PO SCH (16:12)
[2017-12-22] MEDS: Sodium Chloride 0.9% 1,000 ML IV SCH (16:13)
[2017-12-22] MEDS ORDERED: diphenhydrAMINE 50 MG/ML VIAL IVP SCH (16:30)
[2017-12-22] MEDS ORDERED: RITUXIMAB IVPB SCH (16:30)
[2017-12-22] MEDS ORDERED: Acetaminophen 500 MG TAB PO SCH (16:30)
[2017-12-22] MEDS ORDERED: SODIUM CHLORIDE 0.9% IVPB SCH (16:30)
[2017-12-22 18:09] LABS: Bilirubin Negative (Negative); Blood, Urine Negative (Negative); Clarity CLEAR (Clear); Glucose, Urine (Dipstick) >=1000 mg/dL (Negative); Leukocyte Negative (Negative); Nitrite Negative (Negative); Protein, Urine (Dipstick) Negative (Neg-Trace); Specific Gravity, Urine 1.035 (1.002-1.036); Urobilinogen 0.2 mg/dL (0.2-1.0)
[2017-12-22 18:16] LABS: Bacteria/HPF None Seen HPF (None Seen); Hyaline Casts/LPF 0-3 HYALINE CAST LPF (0-3 Hyaline); RBC/HPF 0-3 HPF (0-3); Squamous Epithelial None Seen HPF (0-3); WBC/HPF None Seen HPF (0-3)
[2017-12-22] MEDS: HYDROcodone/Acetaminophen 5/325 mg Tablet PO PRN (18:33)
[2017-12-22] MEDS: Famotidine/PF 20 mg/2ml Vial SLOW IVP SCH (21:09)
[2017-12-22] MEDS: Sodium Chloride 0.9% 10 ML ONE (21:15)
[2017-12-23] MEDS: Sodium Chloride 0.9% 1,000 ML IV SCH ×3 (05:52→19:18)
[2017-12-23 06:18] LABS: #Eosinphils 0.1 thou/uL (0.0-0.7); #Lymphocytes 3.3 thou/uL (1.20-3.40); #Monocytes 0.5 thou/uL (0.11-0.59); %Basophils 0.3 % (0.0-1.0); %Eosinophils 0.5 % (0.0-10.0); %Lymphocytes 23.4 % (21.0-51.0); %Monocytes 3.7 % (0.0-10.0); %Neutrophils 72.1 % (42.0-75.0); Hemoglobin 12.5 g/dL (14.0-18.0); Mean Corpuscular HGB CONC 31.1 g/dL (32.0-36.0); Mean Corpuscular Hemoglobin 37.6 pg (27.0-31.0); Mean Platelet Volume 14.8 fL (7.4-10.4); Platelet Count 33 thou/uL (130-400); RBC Distribution Width 16.8 % (11.5-14.5); Red Blood Cell (RBC) Count 3.33 mill/uL (4.70-6.10); White Blood Cell (WBC) Count 13.9 thou/uL (4.8-10.8)
[2017-12-23 06:37] LABS: ALT (SGPT) 33 U/L (8-55); AST (SGOT) 12 U/L (5-34); Albumin 3.3 g/dL (3.5-5.0); Alkaline Phosphatase 60 U/L (40-150); Anion Gap 12 mmol/L (10-20); BUN (Urea Nitrogen) 19 mg/dL (8.4-25.7); Bilirubin, Total 0.3 mg/dL (0.2-1.2); Calc. Creatinine Clearance 153 mL/min (70-130); Calcium 8.4 mg/dL (7.8-10.44); Carbon Dioxide 25 mmol/L (22-29); Chloride 100 mmol/L (98-107); Estimated GFR-MDRD Greater than 90; Globulin 1.6 g/dL (2.4-3.5); Glucose 215 mg/dL (70-105); Protein, Total 4.9 g/dL (6.0-8.3); Sodium 133 mmol/L (136-145)
[2017-12-23] MEDS: HYDROcodone/Acetaminophen 5/325 mg Tablet PO PRN ×4 (08:02→21:36)
[2017-12-23] MEDS: predniSONE 20 MG TAB PO SCH ×2 (08:02→17:04)
[2017-12-23] MEDS: Famotidine/PF 20 mg/2ml Vial SLOW IVP SCH ×2 (08:02→20:01)
[2017-12-23 08:54] LABS: HBCM Index 0.05 S/CO (0-0.79); HBSAg Index 0.19 S/CO (0-0.99); Hep A IgM AB Non-Reactive (NonReactive); Hep B Surf Ag Non-Reactive S/CO (NonReactive); Hep C IgG Ab Non-Reactive (NonReactive); Hep C Index 0.03 S/CO (0-0.79); Hepatitis B Core IGM Abs Non-Reactive (NonReactive)
[2017-12-23] MEDS ORDERED: Amlodipine 5 MG TAB PO SCH (09:00)
[2017-12-23 09:25] LABS: Folate (Folic Acid) 12.6 ng/mL (7.0-31.4)
--- NOTE | 2017-12-23 09:44 | PDOC.PN ---
- Subjective Encounter Start Date: 12/23/17 Encounter Start Time: 07:00 -: old records requested/rev pt is doing well, wound care team did dressing and feels better - Objective Resuscitation Status: Resuscitation Status FULL:Full Resuscitation MAR Reviewed: Yes Vital Signs & Weight: Vital Signs (12 hours) Temp Pulse Resp BP Pulse Ox 12/23/17 08:02 76 12/23/17 08:00 98.9 F 76 20 12/23/17 07:43 98.9 F 76 20 131/74 100 12/23/17 03:36 98.0 F 59 L 16 124/73 99 12/22/17 23:30 98.1 F 65 16 126/70 99 Weight Weight 243 lb 8 oz I&O: 12/22/17 12/23/17 12/24/17 06:59 06:59 06:59 Intake Total 2425 Output Total 1550 Balance 875 Result Diagrams: 12/23/17 05:55 12/23/17 05:55 Phys Exam - Physical Examination Constitutional: NAD HEENT: PERRLA, moist MMs, sclera anicteric Neck: no JVD, supple Respiratory: no wheezing, no rales, no rhonchi Cardiovascular: RRR, no significant murmur, no rub Gastrointestinal: soft, non-tender, no distention, positive bowel sounds Musculoskeletal: no edema, pulses present Neurological: non-focal, normal sensation, moves all 4 limbs Lymphatic: no nodes Psychiatric: normal affect, A&O x 3 Deviation from normal: please see wound care team photo and discription for detail Dx/Plan (1) Diffuse papular rash Code(s): R21 - RASH AND OTHER NONSPECIFIC SKIN ERUPTION Status: Acute (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 - OTHER AUTOIMMUNE HEMOLYTIC ANEMIAS Status: Chronic (3) H/O idiopathic thrombocytopenic purpura Code(s): Z86.2 - PRSNL HISTORY OF DIS OF THE BLD/BLD-FORM ORG/IMMUN MECHNSM Status: Chronic (4) HTN (hypertension) Code(s): I10 - ESSENTIAL (PRIMARY) HYPERTENSION Status: Chronic Qualifiers: Hypertension type: essential hypertension Qualified Code(s): I10 - Essential (primary) hypertension (5) Macrocytic anemia Code(s): D53.9 - NUTRITIONAL ANEMIA, UNSPECIFIED Status: Chronic (6) Obesity (BMI 30.0-34.9) Code(s): E66.9 - OBESITY, UNSPECIFIED Status: Chronic - Plan cont current plan of care * continue prednisone * wound care * home medication * get skin pathology report * medication reviewed as below * symptomatic treatment. Review of Systems - Review of Systems ENT: negative: Ear Pain, Ear Discharge, Nose Pain, Nose Discharge, Nose Congestion, Mouth Pain, Mouth Swelling, Throat Pain, Throat Swelling, Other Respiratory: negative: Cough, Dry, Shortness of Breath, Hemoptysis, SOB with Excertion, Pleuritic Pain, Sputum, Wheezing Cardiovascular: negative: chest pain, palpitations, orthopnea, paroxysmal nocturnal dyspnea, edema, light headedness, other Gastrointestinal: negative: Nausea, Vomiting, Abdominal Pain, Diarrhea, Constipation, Melena, Hematochezia, Other Genitourinary: negative: Dysuria, Frequency, Incontinence, Hematuria, Retention , Other Musculoskeletal: negative: Neck Pain, Shoulder Pain, Arm Pain, Back Pain, Hand Pain, Leg Pain, Foot Pain, Other Skin: Rash, Bruising. negative: Lesions, Oziel, Other - Medications/Allergies Allergies/Adverse Reactions: Allergies Allergy/AdvReac Type Severity Reaction Status Date / Time No Known Allergies Allergy Verified 12/22/17 15:58 Medications: Current Medications Acetaminophen (Tylenol) 650 mg PO Q4H PRN PRN Reason: Headache/Fever or Pain Hydrocodone Bitart/Acetaminophen ([place] 5/325) 1 tab PO Q4H PRN PRN Reason: Moderate Pain (4-6) Last Admin: 12/23/17 08:02 Dose: 1 tab Al Hydroxide/Mg Hydroxide (Maalox) 30 ml PO Q6H PRN PRN Reason: Heartburn or Indigestion Amlodipine Besylate (Norvasc) 5 mg PO DAILY [facility] Last Admin: 12/23/17 08:02 Dose: Not Given Artificial Tears (Tears Renewed 15ml Bottle) 0 drop EA EYE PRN PRN PRN Reason: Dry Eyes Diphenhydramine HCl (Benadryl) 25 mg IVP Q4H PRN PRN Reason: Itching Famotidine (Pepcid) 20 mg SLOW IVP Q12HR [facility] Last Admin: 12/23/17 08:02 Dose: 20 mg Guaifenesin (Robitussin Sf) 200 mg PO Q4H PRN PRN Reason: Cough Hydralazine HCl (Apresoline) 10 mg SLOW IVP Q4H PRN PRN Reason: Systolic BP > 180 Sodium Chloride (Normal Saline 0.9%) 1,000 mls @ 75 mls/hr IV .[id number] [facility] Last Admin: 12/23/17 05:52 Dose: 1,000 mls Labetalol HCl (Normodyne) 20 mg SLOW IVP Q4H PRN PRN Reason: Systolic BP > 180 Loperamide HCl (Imodium) 2 mg PO PRN PRN PRN Reason: Diarrhea/Loose Stools Magnesium Hydroxide (Milk Of Magnesium) 30 ml PO DAILYPRN PRN PRN Reason: Constipation Mineral Oil/White Petrolatum (Eucerin Cream) 0 gm TOP BIDPRN PRN PRN Reason: Dry Skin Ondansetron HCl (Zofran Odt) 4 mg PO Q6H PRN PRN Reason: Nausea/Vomiting Ondansetron HCl (Zofran) 4 mg IVP Q6H PRN PRN Reason: Nausea/Vomiting Phenol (Chloraseptic [place] 180 Ml Bot) 0 ml PO PRN PRN PRN Reason: Sore Throat Prednisone (Prednisone) 60 mg PO QAM-WM [facility] Last Admin: 12/23/17 08:02 Dose: 60 mg Prednisone (Prednisone) 20 mg PO 1600 [facility] Last Admin: 12/22/17 16:12 Dose: 20 mg Senna (Senokot) 2 tab PO HSPRN PRN PRN Reason: Constipation Sodium Chloride ([place] Nasal [place] 0.65%) 0 ml EA NARE QIDPRN PRN PRN Reason: Nasal Congestion Zolpidem Tartrate (Ambien) 5 mg PO HSPRN PRN PRN Reason: Insomnia
--- NOTE | 2017-12-23 12:17 | CON ---
DATE OF CONSULTATION: 12/23/2017 REASON FOR CONSULTATION: Thrombocytopenia. HISTORY OF PRESENT ILLNESS: Mr. 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 This was in 2010. Most recently he developed hemolytic anemia with thrombocytopenia. His hemoglobin was 5 and his platelet count was 30,000 in 11/2017. He underwent treatment with high dose steroids and Rituxan. He also was started on amlodipine for blood pressure around that time and was being monitored in our clinic. Most recen tly he developed superficial ulcers and skin lesions primarily on his legs, but also on his arms, ba ck and face. Over the course of the past week, they have gotten significantly larger with an increas e in amount of lesions. He was seen yesterday in the clinic by Dr. Simon. 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 He was admitted to this facility for further treatment. PAST MEDICAL HISTORY: 1. ITP. 2. Hemolytic anemia. 3. Hypertension. PAST SURGICAL HISTORY: 1. Splenectomy. 2. Cholecystectomy. ALLERGIES: No known drug allergies. HOME MEDICATIONS: 1. Amlodipine 5 mg daily. 2. Prednisone tapering dose daily, currently at 80 mg. 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 FAMILY HISTORY: Noncontributory. REVIEW OF SYSTEMS: GENERAL: Denies fever, chills, night sweats, recent weight loss or gain. EYES: No blurred or double vision. ENT: No pain, hoarseness, sore throat or dysphagia. CARDIOVASCULAR: No chest pain, palpitations or syncope. RESPIRATORY: No shortness breath, dyspnea on exertion or orthopnea. GASTROINTESTINAL: No nausea, vomiting, diarrhea, constipation or abdominal pain. GENITOURINARY: No dysuria or hematuria. MUSCULOSKELETAL: No joint or back pain. SKIN: Positive for rash. NEUROLOGIC: No weakness, headache, numbness, tingling or seizure activity. PSYCHIATRIC: No anxiety or depression. PHYSICAL EXAMINATION: VITAL SIGNS: Temperature is 98.9, pulse is 76, respiratory rate 20, BP is 131/74, 100% on room air. GENERAL: Well-developed, well-nourished male in no acute distress. HEENT: Normocephalic, atraumatic. Pupils equal and reactive to light. NECK: Supple. CARDIOVASCULAR: Regular rate and rhythm. LUNGS: Clear. ABDOMEN: Soft, nontender. Bowel sounds positive. EXTREMITIES: No clubbing, cyanosis or edema. SKIN: He has ulceration to both legs, both arms, his abdomen, chest, face and scalp. NEUROLOGIC: Nonfocal. PSYCHIATRIC: The patient is alert and oriented and appropriate. PERTINENT LABORATORY AND X-RAYS: Current WBCs are 13.9, hemoglobin 12.5, hematocrit 40.3, platelet c ount is 33,000, 72% neutrophils, 23% lymphocytes. Sodium is 133, potassium 4.0, chloride 100, CO2 is 25, BUN is 19, creatinine 0.84, glucose is 415, calcium 8.4, total bilirubin is 0.3, AST is 12, ALT 33, alkaline phosphatase is 60, C-reactive protein is 4.12. Serum total protein 4.9, albumin 3.3, gl obulin 1.6. B12 was 255, folate is 12.6. Urine was positive for glucose. IMPRESSION: 1. Hemolytic anemia, status post Rituxan x3 cycles. 2. Blood pressure with recent initiation of amlodipine. 3. Isaac-Philip/toxic epidermal necrolysis. DISCUSSION: Biopsy is pending and we will try to obtain from Dr. Zhang's office once available. He is being admitted for further observation. We will continue IV fluids and pain control. Wound Care has seen the patient and is assisting with dressing changes. His wound on his right leg has progres sed today. He will need to stay in the hospital until we feel that the spread of his wounds, ulcerat ions stops. Will have to continue steroids for thrombocytopenia and hemolytic anemia. I will add Be nadryl to assist with insomnia at night. Thank you for the consult.
[2017-12-23] MEDS: Sodium Chloride 0.9% 10 ML ONE ×2 (20:01→20:03)
[2017-12-23] MEDS: diphenhydrAMINE 25 MG CAP PO PRN (21:36)
[2017-12-24] MEDS: HYDROcodone/Acetaminophen 5/325 mg Tablet PO PRN ×3 (07:50→20:01)
[2017-12-24] MEDS: predniSONE 20 MG TAB PO SCH ×2 (07:55→16:24)
[2017-12-24] MEDS: Cyanocobalamin (Vitamin B-12) 1,000 MCG TAB PO SCH (09:27)
[2017-12-24] MEDS: Famotidine/PF 20 mg/2ml Vial SLOW IVP SCH ×2 (09:28→20:20)
[2017-12-24] MEDS: Sodium Chloride 0.9% 1,000 ML IV SCH (09:30)
[2017-12-24 09:42] LABS: #Eosinphils 0.1 thou/uL (0.0-0.7); #Lymphocytes 3.3 thou/uL (1.20-3.40); #Monocytes 0.5 thou/uL (0.11-0.59); #Neutrophils 8.7 thou/uL (1.40-6.50); %Basophils 0.2 % (0.0-1.0); %Eosinophils 0.8 % (0.0-10.0); Hemoglobin 12.4 g/dL (14.0-18.0); Mean Corpuscular HGB CONC 32.1 g/dL (32.0-36.0); Mean Corpuscular Hemoglobin 38.5 pg (27.0-31.0); Mean Platelet Volume 14.1 fL (7.4-10.4); PLT Morphology Comment Appears Decreased; Platelet Count 40 thou/uL (130-400); RBC Distribution Width 16.8 % (11.5-14.5); Red Blood Cell (RBC) Count 3.23 mill/uL (4.70-6.10); White Blood Cell (WBC) Count 12.6 thou/uL (4.8-10.8)
[2017-12-24 09:43] LABS: MDiff Complete? YES
[2017-12-24] MEDS ORDERED: Silver Sulfadiazine 1% Cream 50 GM JAR TOP PRN (10:30)
--- NOTE | 2017-12-24 10:54 | PDOC.PN ---
- Subjective Encounter Start Date: 12/24/17 Encounter Start Time: 09:15 Patient seen and examined. No new complaints. No overnight events - Objective Resuscitation Status: Resuscitation Status FULL:Full Resuscitation MAR Reviewed: Yes Vital Signs & Weight: Vital Signs (12 hours) Temp Pulse Resp BP Pulse Ox 12/24/17 07:34 99.1 F 81 20 151/77 H 100 12/23/17 23:40 98.1 F 75 16 135/75 99 Weight Admit Weight 243 lb 8 oz Weight 243 lb 8 oz I&O: 12/23/17 12/24/17 12/25/17 06:59 06:59 06:59 Intake Total 2425 2900 Output Total 1550 2450 Balance 875 450 Result Diagrams: 12/24/17 08:25 12/23/17 05:55 Phys Exam - Physical Examination Constitutional: NAD HEENT: PERRLA, moist MMs, sclera anicteric Neck: no JVD, supple Respiratory: no wheezing, no rales, no rhonchi Cardiovascular: RRR, no significant murmur, no rub Gastrointestinal: soft, non-tender, no distention, positive bowel sounds Musculoskeletal: no edema, pulses present Neurological: non-focal, normal sensation, moves all 4 limbs Psychiatric: normal affect, A&O x 3 Skin: normal turgor Deviation from normal: see wound care note for finding Dx/Plan (1) Diffuse papular rash Code(s): R21 - RASH AND OTHER NONSPECIFIC SKIN ERUPTION Status: Acute (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 - OTHER AUTOIMMUNE HEMOLYTIC ANEMIAS Status: Chronic (3) H/O idiopathic thrombocytopenic purpura Code(s): Z86.2 - PRSNL HISTORY OF DIS OF THE BLD/BLD-FORM ORG/IMMUN MECHNSM Status: Chronic (4) HTN (hypertension) Code(s): I10 - ESSENTIAL (PRIMARY) HYPERTENSION Status: Chronic Qualifiers: Hypertension type: essential hypertension Qualified Code(s): I10 - Essential (primary) hypertension (5) Macrocytic anemia Code(s): D53.9 - NUTRITIONAL ANEMIA, UNSPECIFIED Status: Chronic (6) Obesity (BMI 30.0-34.9) Code(s): E66.9 - OBESITY, UNSPECIFIED Status: Chronic - Plan cont current plan of care * wound care * medication reviewed as below * symptomatic treatment * await skin pathology report. Review of Systems - Review of Systems Constitutional: negative: fever, chills, sweats, weakness, malaise, other Eyes: negative: Pain, Vision Change, Conjunctivae Inflammation, Eyelid Inflammation, Redness, Other ENT: negative: Ear Pain, Ear Discharge, Nose Pain, Nose Discharge, Nose Congestion, Mouth Pain, Mouth Swelling, Throat Pain, Throat Swelling, Other Respiratory: negative: Cough, Dry, Shortness of Breath, Hemoptysis, SOB with Excertion, Pleuritic Pain, Sputum, Wheezing Cardiovascular: negative: chest pain, palpitations, orthopnea, paroxysmal nocturnal dyspnea, edema, light headedness, other Genitourinary: negative: Dysuria, Frequency, Incontinence, Hematuria, Retention , Other Musculoskeletal: negative: Neck Pain, Shoulder Pain, Arm Pain, Back Pain, Hand Pain, Leg Pain, Foot Pain, Other Skin: Rash, Bruising. negative: Lesions, Oziel, Other - Medications/Allergies Allergies/Adverse Reactions: Allergies Allergy/AdvReac Type Severity Reaction Status Date / Time No Known Allergies Allergy Verified 12/22/17 15:58 Medications: Current Medications Acetaminophen (Tylenol) 650 mg PO Q4H PRN PRN Reason: Headache/Fever or Pain Hydrocodone Bitart/Acetaminophen ([place] 5/325) 1 tab PO Q4H PRN PRN Reason: Moderate Pain (4-6) Last Admin: 12/24/17 07:50 Dose: 1 tab Al Hydroxide/Mg Hydroxide (Maalox) 30 ml PO Q6H PRN PRN Reason: Heartburn or Indigestion Artificial Tears (Tears Renewed 15ml Bottle) 0 drop EA EYE PRN PRN PRN Reason: Dry Eyes Cyanocobalamin (Vitamin B-12) 1,000 mcg PO DAILY [facility] Last Admin: 12/24/17 09:27 Dose: 1,000 mcg Diphenhydramine HCl (Benadryl) 25 mg IVP Q4H PRN PRN Reason: Itching Diphenhydramine HCl (Benadryl) 25 mg PO Q6H PRN PRN Reason: Itching & Insomnia Last Admin: 12/23/17 21:36 Dose: 25 mg Diphenhydramine HCl (Benadryl) 50 mg PO Q6HR PRN PRN Reason: Itching & Insomnia 2ND LINE Famotidine (Pepcid) 20 mg SLOW IVP Q12HR [facility] Last Admin: 12/24/17 09:28 Dose: 20 mg Guaifenesin (Robitussin Sf) 200 mg PO Q4H PRN PRN Reason: Cough Hydralazine HCl (Apresoline) 10 mg SLOW IVP Q4H PRN PRN Reason: Systolic BP > 180 Sodium Chloride (Normal Saline 0.9%) 1,000 mls @ 75 mls/hr IV .[id number] [facility] Last Admin: 12/24/17 09:30 Dose: 1,000 mls Labetalol HCl (Normodyne) 20 mg SLOW IVP Q4H PRN PRN Reason: Systolic BP > 180 Loperamide HCl (Imodium) 2 mg PO PRN PRN PRN Reason: Diarrhea/Loose Stools Magnesium Hydroxide (Milk Of Magnesium) 30 ml PO DAILYPRN PRN PRN Reason: Constipation Mineral Oil/White Petrolatum (Eucerin Cream) 0 gm TOP BIDPRN PRN PRN Reason: Dry Skin Ondansetron HCl (Zofran Odt) 4 mg PO Q6H PRN PRN Reason: Nausea/Vomiting Ondansetron HCl (Zofran) 4 mg IVP Q6H PRN PRN Reason: Nausea/Vomiting Phenol (Chloraseptic [place] 180 Ml Bot) 0 ml PO PRN PRN PRN Reason: Sore Throat Prednisone (Prednisone) 60 mg PO QAM-WM [facility] Last Admin: 12/24/17 07:55 Dose: 60 mg Prednisone (Prednisone) 20 mg PO 1600 [facility] Last Admin: 12/23/17 17:04 Dose: 20 mg Senna (Senokot) 2 tab PO HSPRN PRN PRN Reason: Constipation Silver Sulfadiazine (Silvadene) 0 gm TOP PRN PRN PRN Reason: INFECTION PREVENTION Sodium Chloride ([place] Nasal [place] 0.65%) 0 ml EA NARE QIDPRN PRN PRN Reason: Nasal Congestion Zolpidem Tartrate (Ambien) 5 mg PO HSPRN PRN PRN Reason: Insomnia
[2017-12-24] MEDS: diphenhydrAMINE 50 MG CAP PO PRN (20:01)
[2017-12-24] MEDS: Sodium Chloride 0.9% 10 ML ONE (20:20)
[2017-12-25] MEDS: Sodium Chloride 0.9% 1,000 ML IV SCH ×2 (00:28→14:20)
[2017-12-25 05:21] LABS: Anion Gap 10 mmol/L (10-20); BUN (Urea Nitrogen) 19 mg/dL (8.4-25.7); Calc. Creatinine Clearance 163 mL/min (70-130); Carbon Dioxide 26 mmol/L (22-29); Chloride 99 mmol/L (98-107); Estimated GFR-MDRD Greater than 90; Glucose 261 mg/dL (70-105); Sodium 131 mmol/L (136-145)
[2017-12-25 05:32] LABS: #Basophils 0.1 thou/uL (0.0-0.2); #Eosinphils 0.1 thou/uL (0.0-0.7); #Lymphocytes 2.6 thou/uL (1.20-3.40); #Monocytes 0.6 thou/uL (0.11-0.59); #Neutrophils 7.7 thou/uL (1.40-6.50); %Basophils 1.2 % (0.0-1.0); %Eosinophils 0.6 % (0.0-10.0); %Lymphocytes 23.3 % (21.0-51.0); %Neutrophils 69.9 % (42.0-75.0); Hemoglobin 11.1 g/dL (14.0-18.0); MDiff Complete? YES; Macrocytosis SLIGHT = 6-15 cells (100X) (0-5/hpf); Mean Corpuscular HGB CONC 32.5 g/dL (32.0-36.0); Mean Corpuscular Hemoglobin 38.6 pg (27.0-31.0); Mean Platelet Volume 8.5 fL (7.4-10.4); PLT Morphology Comment Appears Decreased; Platelet Count 46 thou/uL (130-400); RBC Distribution Width 16.9 % (11.5-14.5); Red Blood Cell (RBC) Count 2.87 mill/uL (4.70-6.10)
[2017-12-25] MEDS: Famotidine/PF 20 mg/2ml Vial SLOW IVP SCH ×2 (08:25→20:23)
[2017-12-25] MEDS: Hydrochlorothiazide 25 MG TAB PO SCH (08:26)
[2017-12-25] MEDS: Cyanocobalamin (Vitamin B-12) 1,000 MCG TAB PO SCH (08:27)
[2017-12-25] MEDS: predniSONE 20 MG TAB PO SCH ×2 (08:27→16:12)
--- NOTE | 2017-12-25 09:08 | PDOC.PN ---
- Subjective Encounter Start Date: 12/25/17 Encounter Start Time: 07:00 Patient seen and examined. No new complaints. No overnight events - Objective Resuscitation Status: Resuscitation Status FULL:Full Resuscitation MAR Reviewed: Yes Vital Signs & Weight: Vital Signs (12 hours) Temp Pulse Resp BP Pulse Ox 12/25/17 08:00 98.2 F 71 20 136/63 98 12/25/17 03:34 98.8 F 62 16 130/67 98 12/24/17 23:50 98.6 F 63 16 136/65 97 Weight Admit Weight 243 lb 8 oz Weight 243 lb 8 oz I&O: 12/24/17 12/25/17 12/26/17 06:59 06:59 06:59 Intake Total 2900 2510 Output Total 2450 2350 Balance 450 160 Result Diagrams: 12/25/17 04:41 12/25/17 04:41 Phys Exam - Physical Examination Constitutional: NAD HEENT: PERRLA, moist MMs, sclera anicteric Neck: no JVD, supple Respiratory: no wheezing, no rales, no rhonchi Cardiovascular: RRR, no significant murmur, no rub Gastrointestinal: soft, non-tender, no distention, positive bowel sounds Musculoskeletal: no edema, pulses present Neurological: non-focal, normal sensation, moves all 4 limbs Psychiatric: normal affect, A&O x 3 Skin: normal turgor Deviation from normal: see WCT note for details Dx/Plan (1) Diffuse papular rash Code(s): R21 - RASH AND OTHER NONSPECIFIC SKIN ERUPTION Status: Acute (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 - OTHER AUTOIMMUNE HEMOLYTIC ANEMIAS Status: Chronic (3) H/O idiopathic thrombocytopenic purpura Code(s): Z86.2 - PRSNL HISTORY OF DIS OF THE BLD/BLD-FORM ORG/IMMUN MECHNSM Status: Chronic (4) HTN (hypertension) Code(s): I10 - ESSENTIAL (PRIMARY) HYPERTENSION Status: Chronic Qualifiers: Hypertension type: essential hypertension Qualified Code(s): I10 - Essential (primary) hypertension (5) Macrocytic anemia Code(s): D53.9 - NUTRITIONAL ANEMIA, UNSPECIFIED Status: Chronic (6) Obesity (BMI 30.0-34.9) Code(s): E66.9 - OBESITY, UNSPECIFIED Status: Chronic - Plan cont current plan of care * continue wound care * pain controlled * morphin before wound care * await pathology report * medication reviewed as below * symptomatic treatment. Review of Systems - Review of Systems Constitutional: negative: fever, chills, sweats, weakness, malaise, other Eyes: negative: Pain, Vision Change, Conjunctivae Inflammation, Eyelid Inflammation, Redness, Other ENT: negative: Ear Pain, Ear Discharge, Nose Pain, Nose Discharge, Nose Congestion, Mouth Pain, Mouth Swelling, Throat Pain, Throat Swelling, Other Respiratory: negative: Cough, Dry, Shortness of Breath, Hemoptysis, SOB with Excertion, Pleuritic Pain, Sputum, Wheezing Cardiovascular: negative: chest pain, palpitations, orthopnea, paroxysmal nocturnal dyspnea, edema, light headedness, other Gastrointestinal: negative: Nausea, Vomiting, Abdominal Pain, Diarrhea, Constipation, Melena, Hematochezia, Other Genitourinary: negative: Dysuria, Frequency, Incontinence, Hematuria, Retention , Other Musculoskeletal: negative: Neck Pain, Shoulder Pain, Arm Pain, Back Pain, Hand Pain, Leg Pain, Foot Pain, Other Skin: Rash. negative: Lesions, Oziel, Bruising, Other - Medications/Allergies Allergies/Adverse Reactions: Allergies Allergy/AdvReac Type Severity Reaction Status Date / Time No Known Allergies Allergy Verified 12/22/17 15:58 Medications: Current Medications Acetaminophen (Tylenol) 650 mg PO Q4H PRN PRN Reason: Headache/Fever or Pain Hydrocodone Bitart/Acetaminophen ([place] 5/325) 1 tab PO Q4H PRN PRN Reason: Moderate Pain (4-6) Last Admin: 12/24/17 20:01 Dose: 1 tab Al Hydroxide/Mg Hydroxide (Maalox) 30 ml PO Q6H PRN PRN Reason: Heartburn or Indigestion Artificial Tears (Tears Renewed 15ml Bottle) 0 drop EA EYE PRN PRN PRN Reason: Dry Eyes Cyanocobalamin (Vitamin B-12) 1,000 mcg PO DAILY [facility] Last Admin: 12/25/17 08:27 Dose: 1,000 mcg Diphenhydramine HCl (Benadryl) 25 mg IVP Q4H PRN PRN Reason: Itching Diphenhydramine HCl (Benadryl) 25 mg PO Q6H PRN PRN Reason: Itching & Insomnia Last Admin: 12/23/17 21:36 Dose: 25 mg Diphenhydramine HCl (Benadryl) 50 mg PO Q6HR PRN PRN Reason: Itching & Insomnia 2ND LINE Last Admin: 12/24/17 20:01 Dose: 50 mg Famotidine (Pepcid) 20 mg SLOW IVP Q12HR [facility] Last Admin: 12/25/17 08:25 Dose: 20 mg Guaifenesin (Robitussin Sf) 200 mg PO Q4H PRN PRN Reason: Cough Hydralazine HCl (Apresoline) 10 mg SLOW IVP Q4H PRN PRN Reason: Systolic BP > 180 Hydrochlorothiazide (Hydrochlorothiazide) 12.5 mg PO DAILY [facility] Last Admin: 12/25/17 08:26 Dose: 12.5 mg Sodium Chloride (Normal Saline 0.9%) 1,000 mls @ 75 mls/hr IV .[id number] [facility] Last Admin: 12/25/17 00:28 Dose: 1,000 mls Labetalol HCl (Normodyne) 20 mg SLOW IVP Q4H PRN PRN Reason: Systolic BP > 180 Loperamide HCl (Imodium) 2 mg PO PRN PRN PRN Reason: Diarrhea/Loose Stools Magnesium Hydroxide (Milk Of Magnesium) 30 ml PO DAILYPRN PRN PRN Reason: Constipation Mineral Oil/White Petrolatum (Eucerin Cream) 0 gm TOP BIDPRN PRN PRN Reason: Dry Skin Morphine Sulfate (Morphine Sulfate) 4 mg IVP Q4H PRN PRN Reason: DRESSING CHANGES Last Admin: 12/24/17 12:25 Dose: 4 mg Ondansetron HCl (Zofran Odt) 4 mg PO Q6H PRN PRN Reason: Nausea/Vomiting Ondansetron HCl (Zofran) 4 mg IVP Q6H PRN PRN Reason: Nausea/Vomiting Phenol (Chloraseptic [place] 180 Ml Bot) 0 ml PO PRN PRN PRN Reason: Sore Throat Prednisone (Prednisone) 60 mg PO QAM-WM [facility] Last Admin: 12/25/17 08:27 Dose: 60 mg Prednisone (Prednisone) 20 mg PO 1600 [facility] Last Admin: 12/24/17 16:24 Dose: 20 mg Senna (Senokot) 2 tab PO HSPRN PRN PRN Reason: Constipation Silver Sulfadiazine (Silvadene) 0 gm TOP PRN PRN PRN Reason: WOUND CARE Sodium Chloride ([place] Nasal [place] 0.65%) 0 ml EA NARE QIDPRN PRN PRN Reason: Nasal Congestion Zolpidem Tartrate (Ambien) 5 mg PO HSPRN PRN PRN Reason: Insomnia
[2017-12-25] MEDS ORDERED: Fluconazole 100 MG TAB PO SCH (15:15)
--- NOTE | 2017-12-25 19:53 | DIS ---
DATE OF ADMISSION: 12/22/2017 DATE OF DISCHARGE: 12/25/2017 PRIMARY CARE PHYSICIAN: Dr. John Martinez, Family Nurse Practitioner. 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 SECONDARY DISCHARGE DIAGNOSES: Autoimmune hemolytic anemia, chronic thrombocytopenic purpura, hypertension, macrocytic anemia, obesity. PRIMARY PROCEDURE/OPERATION: None. RADIOLOGICAL INVESTIGATION: None. SIGNIFICANT LABORATORY: WBC 11.0, hemoglobin 11.1, platelets 46. Sodium 131, potassium 4.0, BUN 19, creatinine 0.79, calcium 8.0. LFTs normal. CRP 4.12, vitamin B12 255, folate 12.60. Urinalysis normal. Hepatitis profile negative. DISCHARGE MEDICATIONS: The patient was on following medication prior to arrival to the hospital, amlodipine 5 mg p.o. daily, prednisone 60 mg in the morning and 20 mg in the afternoon. CONTRAINDICATIONS: None. CODE STATUS: FULL CODE. INPATIENT CONSULTANTS: Dr. Erlinda Simon was following while in hospital. TEST RESULTS PENDING ON DISCHARGE: None. ALLERGIES: No known drug allergy. DISCHARGE PLAN: Post hospital, the patient is planned for discharge to [facility]. HOSPITAL COURSE: A 57-year-old male who has a long history of idiopathic thrombocytopenic purpura, which was diagnosed in 2009 when he was treated with steroid and he responded, but when they were tapering prednisone dose at that time, he had a relapse and that is why he required Rituxan therapy in 2010 and subsequently, he also required a splenectomy. He was fine up until November 2017 when he was diagnosed with hemolytic anemia and he was admitted in our hospital. At that time, he was receiving high dose of oral prednisone as well as Rituxan therapy. There was association of this treatment with rash and his rash was gradually getting worse. He was developing purpuric spot, which was gradually getting bigger and developing blister and blister was rupturing with beefy base. It was tender and uncomfortable. This patient was referred to business records manager and they did a skin biopsy, but subsequently the oncology admitted this patient in our hospital. We treated him with IV fluid and general skin care with the Wound Care team, but his skin lesion and rash increasing, and we do not have any facility up for business records manager as well as burn unit and that is why I spoke with [facility] Burn Unit and they recommended hospitalist for admit and they will consult there. After that I spoke with the Hospitalist and updated about this patient's hospital course. iIf they accept this patient and then will transfer this patient for further over there. João [facility] [place] did not accept patient. ORQUIDEA
[2017-12-25] MEDS: cycloSPORINE, Modified 100 MG CAP PO SCH (20:21)
[2017-12-25] MEDS: diphenhydrAMINE 50 MG CAP PO PRN (23:18)
[2017-12-25] MEDS: HYDROcodone/Acetaminophen 5/325 mg Tablet PO PRN (23:18)
[2017-12-26] MEDS: Sodium Chloride 0.9% 1,000 ML IV SCH ×2 (00:58→16:26)
[2017-12-26 06:42] LABS: #Basophils 0.1 thou/uL (0.0-0.2); #Lymphocytes 4.4 thou/uL (1.20-3.40); #Monocytes 0.7 thou/uL (0.11-0.59); #Neutrophils 6.8 thou/uL (1.40-6.50); %Basophils 0.6 % (0.0-1.0); %Eosinophils 0.4 % (0.0-10.0); %Lymphocytes 36.8 % (21.0-51.0); %Neutrophils 56.3 % (42.0-75.0); Anisocytosis SLIGHT = 6-15 cells (100X) (0-5/hpf); Hemoglobin 11.3 g/dL (14.0-18.0); MDiff Complete? YES; Mean Corpuscular HGB CONC 32.5 g/dL (32.0-36.0); Mean Corpuscular Hemoglobin 38.4 pg (27.0-31.0); Mean Platelet Volume 8.6 fL (7.4-10.4); PLT Morphology Comment Appears Decreased; Platelet Count 69 thou/uL (130-400); RBC Distribution Width 16.9 % (11.5-14.5); Red Blood Cell (RBC) Count 2.94 mill/uL (4.70-6.10); Schistocytes SLIGHT = 2-5 cells (100X) (0-1/hpf)
[2017-12-26] MEDS: predniSONE 20 MG TAB PO SCH ×2 (08:02→16:26)
[2017-12-26] MEDS: Hydrochlorothiazide 25 MG TAB PO SCH (08:03)
[2017-12-26] MEDS: Famotidine/PF 20 mg/2ml Vial SLOW IVP SCH ×2 (08:03→20:12)
[2017-12-26] MEDS: Fluconazole 100 MG TAB PO SCH (08:03)
[2017-12-26] MEDS: Cyanocobalamin (Vitamin B-12) 1,000 MCG TAB PO SCH (08:03)
[2017-12-26] MEDS: cycloSPORINE, Modified 100 MG CAP PO SCH ×2 (09:04→20:12)
--- NOTE | 2017-12-26 10:20 | PDOC.PN ---
- Subjective Encounter Start Date: 12/26/17 Encounter Start Time: 07:20 Patient seen and examined. No new complaints. No overnight events - Objective Resuscitation Status: Resuscitation Status FULL:Full Resuscitation MAR Reviewed: Yes Vital Signs & Weight: Vital Signs (12 hours) Temp Pulse Resp BP Pulse Ox 12/26/17 07:15 98.0 F 63 16 147/76 H 98 12/26/17 04:00 98.7 F 60 18 138/72 97 12/26/17 02:02 98 12/26/17 00:00 98.3 F 66 20 137/78 98 Weight Admit Weight 243 lb 8 oz Weight 243 lb 8 oz I&O: 12/25/17 12/26/17 12/27/17 06:59 06:59 06:59 Intake Total 2510 3900 Output Total 2350 3450 Balance 160 450 Result Diagrams: 12/26/17 05:24 12/25/17 04:41 Phys Exam - Physical Examination Constitutional: NAD HEENT: PERRLA, moist MMs, sclera anicteric Neck: no JVD, supple Respiratory: no wheezing, no rales, no rhonchi Cardiovascular: RRR, no significant murmur, no rub Gastrointestinal: soft, non-tender, no distention, positive bowel sounds Musculoskeletal: no edema, pulses present Neurological: non-focal, normal sensation Psychiatric: normal affect, A&O x 3 Skin: normal turgor Deviation from normal: please see photographs Dx/Plan (1) Diffuse papular rash Code(s): R21 - RASH AND OTHER NONSPECIFIC SKIN ERUPTION Status: Acute (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 - OTHER AUTOIMMUNE HEMOLYTIC ANEMIAS Status: Chronic (3) H/O idiopathic thrombocytopenic purpura Code(s): Z86.2 - PRSNL HISTORY OF DIS OF THE BLD/BLD-FORM ORG/IMMUN MECHNSM Status: Chronic (4) HTN (hypertension) Code(s): I10 - ESSENTIAL (PRIMARY) HYPERTENSION Status: Chronic Qualifiers: Hypertension type: essential hypertension Qualified Code(s): I10 - Essential (primary) hypertension (5) Macrocytic anemia Code(s): D53.9 - NUTRITIONAL ANEMIA, UNSPECIFIED Status: Chronic (6) Obesity (BMI 30.0-34.9) Code(s): E66.9 - OBESITY, UNSPECIFIED Status: Chronic - Plan cont current plan of care * await skin pathology report * continue wound care. Review of Systems - Review of Systems ENT: negative: Ear Pain, Ear Discharge, Nose Pain, Nose Discharge, Nose Congestion, Mouth Pain, Mouth Swelling, Throat Pain, Throat Swelling, Other Respiratory: negative: Cough, Dry, Shortness of Breath, Hemoptysis, SOB with Excertion, Pleuritic Pain, Sputum, Wheezing Cardiovascular: negative: chest pain, palpitations, orthopnea, paroxysmal nocturnal dyspnea, edema, light headedness, other Gastrointestinal: negative: Nausea, Vomiting, Abdominal Pain, Diarrhea, Constipation, Melena, Hematochezia, Other Genitourinary: negative: Dysuria, Frequency, Incontinence, Hematuria, Retention , Other Musculoskeletal: negative: Neck Pain, Shoulder Pain, Arm Pain, Back Pain, Hand Pain, Leg Pain, Foot Pain, Other - Medications/Allergies Allergies/Adverse Reactions: Allergies Allergy/AdvReac Type Severity Reaction Status Date / Time No Known Allergies Allergy Verified 12/22/17 15:58 Medications: Current Medications Acetaminophen (Tylenol) 650 mg PO Q4H PRN PRN Reason: Headache/Fever or Pain Hydrocodone Bitart/Acetaminophen ([place] 5/325) 1 tab PO Q4H PRN PRN Reason: Moderate Pain (4-6) Last Admin: 12/25/17 23:18 Dose: 1 tab Al Hydroxide/Mg Hydroxide (Maalox) 30 ml PO Q6H PRN PRN Reason: Heartburn or Indigestion Artificial Tears (Tears Renewed 15ml Bottle) 0 drop EA EYE PRN PRN PRN Reason: Dry Eyes Cyanocobalamin (Vitamin B-12) 1,000 mcg PO DAILY [facility] Last Admin: 12/26/17 08:03 Dose: 1,000 mcg Cyclosporine (Neoral) 200 mg PO BID [facility] Last Admin: 12/26/17 09:04 Dose: 200 mg Diphenhydramine HCl (Benadryl) 25 mg IVP Q4H PRN PRN Reason: Itching Diphenhydramine HCl (Benadryl) 25 mg PO Q6H PRN PRN Reason: Itching & Insomnia Last Admin: 12/23/17 21:36 Dose: 25 mg Diphenhydramine HCl (Benadryl) 50 mg PO Q6HR PRN PRN Reason: Itching & Insomnia 2ND LINE Last Admin: 12/25/17 23:18 Dose: 50 mg Famotidine (Pepcid) 20 mg SLOW IVP Q12HR [facility] Last Admin: 12/26/17 08:03 Dose: 20 mg Fluconazole (Diflucan) 100 mg PO DAILY [facility] Last Admin: 12/26/17 08:03 Dose: 100 mg Guaifenesin (Robitussin Sf) 200 mg PO Q4H PRN PRN Reason: Cough Hydralazine HCl (Apresoline) 10 mg SLOW IVP Q4H PRN PRN Reason: Systolic BP > 180 Hydrochlorothiazide (Hydrochlorothiazide) 12.5 mg PO DAILY [facility] Last Admin: 12/26/17 08:03 Dose: 12.5 mg Sodium Chloride (Normal Saline 0.9%) 1,000 mls @ 75 mls/hr IV .[id number] [facility] Last Admin: 12/26/17 00:58 Dose: 1,000 mls Labetalol HCl (Normodyne) 20 mg SLOW IVP Q4H PRN PRN Reason: Systolic BP > 180 Loperamide HCl (Imodium) 2 mg PO PRN PRN PRN Reason: Diarrhea/Loose Stools Magnesium Hydroxide (Milk Of Magnesium) 30 ml PO DAILYPRN PRN PRN Reason: Constipation Mineral Oil/White Petrolatum (Eucerin Cream) 0 gm TOP BIDPRN PRN PRN Reason: Dry Skin Morphine Sulfate (Morphine Sulfate) 4 mg IVP Q4H PRN PRN Reason: DRESSING CHANGES Last Admin: 12/25/17 12:05 Dose: 4 mg Ondansetron HCl (Zofran Odt) 4 mg PO Q6H PRN PRN Reason: Nausea/Vomiting Ondansetron HCl (Zofran) 4 mg IVP Q6H PRN PRN Reason: Nausea/Vomiting Phenol (Chloraseptic [place] 180 Ml Bot) 0 ml PO PRN PRN PRN Reason: Sore Throat Prednisone (Prednisone) 60 mg PO QAM-WM [facility] Last Admin: 12/26/17 08:02 Dose: 60 mg Prednisone (Prednisone) 20 mg PO 1600 [facility] Last Admin: 12/25/17 16:12 Dose: 20 mg Senna (Senokot) 2 tab PO HSPRN PRN PRN Reason: Constipation Silver Sulfadiazine (Silvadene) 0 gm TOP PRN PRN PRN Reason: WOUND CARE Sodium Chloride ([place] Nasal [place] 0.65%) 0 ml EA NARE QIDPRN PRN PRN Reason: Nasal Congestion Zolpidem Tartrate (Ambien) 5 mg PO HSPRN PRN PRN Reason: Insomnia
[2017-12-26] MEDS: HYDROcodone/Acetaminophen 5/325 mg Tablet PO PRN (22:10)
[2017-12-26] MEDS: diphenhydrAMINE 25 MG CAP PO PRN (22:10)
[2017-12-27] MEDS: Sodium Chloride 0.9% 1,000 ML IV SCH (03:06)
[2017-12-27 06:35] LABS: Band 12 % (5-11); Hemoglobin 11.3 g/dL (14.0-18.0); Lymphocytes 18 % (21-51); MDiff Complete? YES; Macrocytosis SLIGHT = 6-15 cells (100X) (0-5/hpf); Mean Corpuscular Hemoglobin 37.7 pg (27.0-31.0); Mean Platelet Volume 12.1 fL (7.4-10.4); Monocytes 8 % (0-10); Myelocyte 5 % (0-0); Neutrophil 57 % (42-75); Nucleated RBC 1 % (0); PLT Morphology Comment Appears Decreased; Platelet Count 82 thou/uL (130-400); RBC Distribution Width 16.8 % (11.5-14.5); Red Blood Cell (RBC) Count 3.01 mill/uL (4.70-6.10)
[2017-12-27] MEDS: predniSONE 20 MG TAB PO SCH (09:28)
[2017-12-27] MEDS: cycloSPORINE, Modified 100 MG CAP PO SCH ×2 (09:29→22:09)
[2017-12-27] MEDS: Hydrochlorothiazide 25 MG TAB PO SCH (09:29)
[2017-12-27] MEDS: Cyanocobalamin (Vitamin B-12) 1,000 MCG TAB PO SCH (09:29)
[2017-12-27] MEDS: Famotidine/PF 20 mg/2ml Vial SLOW IVP SCH (09:30)
[2017-12-27] MEDS: Fluconazole 100 MG TAB PO SCH (09:30)
--- NOTE | 2017-12-27 10:24 | PDOC.PN ---
- Subjective Encounter Start Date: 12/27/17 Encounter Start Time: 07:10 Patient seen and examined. No new complaints. No overnight events - Objective Resuscitation Status: Resuscitation Status FULL:Full Resuscitation MAR Reviewed: Yes Vital Signs & Weight: Vital Signs (12 hours) Temp Pulse Resp BP Pulse Ox 12/27/17 07:35 97.9 F 63 16 158/75 H 96 12/27/17 03:19 97.8 F 60 16 161/74 H 98 12/27/17 00:00 97.9 F 60 16 139/69 97 Weight Admit Weight 243 lb 8 oz Weight 243 lb 8 oz I&O: 12/26/17 12/27/17 12/28/17 06:59 06:59 06:59 Intake Total 3900 5020 Output Total 3450 2425 Balance 450 2595 Result Diagrams: 12/27/17 05:49 12/25/17 04:41 Phys Exam - Physical Examination Constitutional: NAD HEENT: PERRLA, moist MMs, sclera anicteric Neck: no JVD, supple Respiratory: no wheezing, no rales, no rhonchi Cardiovascular: RRR, no significant murmur, no rub Gastrointestinal: soft, non-tender, no distention, positive bowel sounds Musculoskeletal: no edema, pulses present Neurological: non-focal, normal sensation Lymphatic: no nodes Psychiatric: normal affect, A&O x 3 Skin: normal turgor Deviation from normal: rash noted Dx/Plan (1) Diffuse papular rash Code(s): R21 - RASH AND OTHER NONSPECIFIC SKIN ERUPTION Status: Acute (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 - OTHER AUTOIMMUNE HEMOLYTIC ANEMIAS Status: Chronic (3) H/O idiopathic thrombocytopenic purpura Code(s): Z86.2 - PRSNL HISTORY OF DIS OF THE BLD/BLD-FORM ORG/IMMUN MECHNSM Status: Chronic (4) HTN (hypertension) Code(s): I10 - ESSENTIAL (PRIMARY) HYPERTENSION Status: Chronic Qualifiers: Hypertension type: essential hypertension Qualified Code(s): I10 - Essential (primary) hypertension (5) Macrocytic anemia Code(s): D53.9 - NUTRITIONAL ANEMIA, UNSPECIFIED Status: Chronic (6) Obesity (BMI 30.0-34.9) Code(s): E66.9 - OBESITY, UNSPECIFIED Status: Chronic (7) Acute bacterial conjunctivitis Code(s): H10.30 - UNSPECIFIED ACUTE CONJUNCTIVITIS, UNSPECIFIED EYE Status: Acute Qualifiers: Laterality: bilateral Qualified Code(s): H10.33 - Unspecified acute conjunctivitis, bilateral - Plan cont current plan of care * consult Dr Garcias today * await skin pathology report * DC IVF * add ciplox eye drops bid. * medication reviewed as below * symptomatic treatment Review of Systems - Review of Systems Eyes: Conjunctivae Inflammation. negative: Pain, Vision Change, Eyelid Inflammation, Redness, Other ENT: negative: Ear Pain, Ear Discharge, Nose Pain, Nose Discharge, Nose Congestion, Mouth Pain, Mouth Swelling, Throat Pain, Throat Swelling, Other Respiratory: negative: Cough, Dry, Shortness of Breath, Hemoptysis, SOB with Excertion, Pleuritic Pain, Sputum, Wheezing Cardiovascular: negative: chest pain, palpitations, orthopnea, paroxysmal nocturnal dyspnea, edema, light headedness, other Gastrointestinal: negative: Nausea, Vomiting, Abdominal Pain, Diarrhea, Constipation, Melena, Hematochezia, Other Genitourinary: negative: Dysuria, Frequency, Incontinence, Hematuria, Retention , Other Musculoskeletal: negative: Neck Pain, Shoulder Pain, Arm Pain, Back Pain, Hand Pain, Leg Pain, Foot Pain, Other Skin: negative: Rash, Lesions, Oziel, Bruising, Other - Medications/Allergies Allergies/Adverse Reactions: Allergies Allergy/AdvReac Type Severity Reaction Status Date / Time No Known Allergies Allergy Verified 12/22/17 15:58 Medications: Current Medications Acetaminophen (Tylenol) 650 mg PO Q4H PRN PRN Reason: Headache/Fever or Pain Hydrocodone Bitart/Acetaminophen ([place] 5/325) 1 tab PO Q4H PRN PRN Reason: Moderate Pain (4-6) Last Admin: 12/26/17 22:10 Dose: 1 tab Al Hydroxide/Mg Hydroxide (Maalox) 30 ml PO Q6H PRN PRN Reason: Heartburn or Indigestion Artificial Tears (Tears Renewed 15ml Bottle) 0 drop EA EYE PRN PRN PRN Reason: Dry Eyes Ciprofloxacin (Ciprofloxacin Hcl) 2 drop EA EYE BID [facility] Cyanocobalamin (Vitamin B-12) 1,000 mcg PO DAILY [facility] Last Admin: 12/27/17 09:29 Dose: 1,000 mcg Cyclosporine (Neoral) 200 mg PO BID [facility] Last Admin: 12/27/17 09:29 Dose: 200 mg Diphenhydramine HCl (Benadryl) 25 mg IVP Q4H PRN PRN Reason: Itching Diphenhydramine HCl (Benadryl) 25 mg PO Q6H PRN PRN Reason: Itching & Insomnia Last Admin: 12/26/17 22:10 Dose: 25 mg Diphenhydramine HCl (Benadryl) 50 mg PO Q6HR PRN PRN Reason: Itching & Insomnia 2ND LINE Last Admin: 12/25/17 23:18 Dose: 50 mg Famotidine (Pepcid) 20 mg SLOW IVP Q12HR [facility] Last Admin: 12/27/17 09:30 Dose: 20 mg Fluconazole (Diflucan) 100 mg PO DAILY [facility] Last Admin: 12/27/17 09:30 Dose: 100 mg Guaifenesin (Robitussin Sf) 200 mg PO Q4H PRN PRN Reason: Cough Hydralazine HCl (Apresoline) 10 mg SLOW IVP Q4H PRN PRN Reason: Systolic BP > 180 Hydrochlorothiazide (Hydrochlorothiazide) 12.5 mg PO DAILY [facility] Last Admin: 12/27/17 09:29 Dose: 12.5 mg Labetalol HCl (Normodyne) 20 mg SLOW IVP Q4H PRN PRN Reason: Systolic BP > 180 Loperamide HCl (Imodium) 2 mg PO PRN PRN PRN Reason: Diarrhea/Loose Stools Magnesium Hydroxide (Milk Of Magnesium) 30 ml PO DAILYPRN PRN PRN Reason: Constipation Mineral Oil/White Petrolatum (Eucerin Cream) 0 gm TOP BIDPRN PRN PRN Reason: Dry Skin Morphine Sulfate (Morphine Sulfate) 4 mg IVP Q4H PRN PRN Reason: DRESSING CHANGES Last Admin: 12/26/17 12:10 Dose: 4 mg Ondansetron HCl (Zofran Odt) 4 mg PO Q6H PRN PRN Reason: Nausea/Vomiting Ondansetron HCl (Zofran) 4 mg IVP Q6H PRN PRN Reason: Nausea/Vomiting Phenol (Chloraseptic [place] 180 Ml Bot) 0 ml PO PRN PRN PRN Reason: Sore Throat Prednisone (Prednisone) 60 mg PO [facility] Last Admin: 12/27/17 09:28 Dose: 60 mg Senna (Senokot) 2 tab PO HSPRN PRN PRN Reason: Constipation Silver Sulfadiazine (Silvadene) 0 gm TOP PRN PRN PRN Reason: WOUND CARE Sodium Chloride ([place] Nasal [place] 0.65%) 0 ml EA NARE QIDPRN PRN PRN Reason: Nasal Congestion Zolpidem Tartrate (Ambien) 5 mg PO HSPRN PRN PRN Reason: Insomnia
[2017-12-27] MEDS ORDERED: Famotidine 20 MG TAB PO SCH (21:15)
[2017-12-27] MEDS: diphenhydrAMINE 25 MG CAP PO PRN (22:07)
[2017-12-27] MEDS: HYDROcodone/Acetaminophen 5/325 mg Tablet PO PRN (22:08)
[2017-12-28] MEDS: Famotidine/PF 20 mg/2ml Vial SLOW IVP SCH (01:22)
[2017-12-28] MEDS ORDERED: Famotidine 20 MG TAB PO SCH (09:00)
[2017-12-28] MEDS ORDERED: Hydrochlorothiazide 25 MG TAB PO SCH (09:00)
[2017-12-28] MEDS: Cyanocobalamin (Vitamin B-12) 1,000 MCG TAB PO SCH (10:13)
[2017-12-28] MEDS: Fluconazole 100 MG TAB PO SCH (10:13)
[2017-12-28] MEDS: predniSONE 20 MG TAB PO SCH (10:14)
[2017-12-28] MEDS: cycloSPORINE, Modified 100 MG CAP PO SCH (10:19)
--- NOTE | 2017-12-28 10:49 | PDOC.PN ---
- Subjective Encounter Start Date: 12/28/17 Encounter Start Time: 07:10 Patient seen and examined. No new complaints. No overnight events - Objective Resuscitation Status: Resuscitation Status FULL:Full Resuscitation MAR Reviewed: Yes Vital Signs & Weight: Vital Signs (12 hours) Temp Pulse Resp BP Pulse Ox 12/28/17 07:35 97.7 F 57 L 16 149/78 H 98 Weight Admit Weight 243 lb 8 oz Weight 243 lb 8 oz I&O: 12/27/17 12/28/17 12/29/17 06:59 06:59 06:59 Intake Total 5020 1275 Output Total 2425 900 Balance 2595 375 Result Diagrams: 12/27/17 05:49 12/25/17 04:41 Phys Exam - Physical Examination Constitutional: NAD HEENT: PERRLA, moist MMs, sclera anicteric Neck: no JVD, supple Respiratory: no wheezing, no rales, no rhonchi Cardiovascular: RRR, no significant murmur, no rub Gastrointestinal: soft, non-tender, no distention, positive bowel sounds Musculoskeletal: no edema, pulses present Neurological: non-focal, normal sensation Psychiatric: normal affect, A&O x 3 Skin: normal turgor Deviation from normal: rash noted with dressing Dx/Plan (1) Diffuse papular rash Code(s): R21 - RASH AND OTHER NONSPECIFIC SKIN ERUPTION Status: Acute (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 - OTHER AUTOIMMUNE HEMOLYTIC ANEMIAS Status: Chronic (3) H/O idiopathic thrombocytopenic purpura Code(s): Z86.2 - PRSNL HISTORY OF DIS OF THE BLD/BLD-FORM ORG/IMMUN MECHNSM Status: Chronic (4) HTN (hypertension) Code(s): I10 - ESSENTIAL (PRIMARY) HYPERTENSION Status: Chronic Qualifiers: Hypertension type: essential hypertension Qualified Code(s): I10 - Essential (primary) hypertension (5) Macrocytic anemia Code(s): D53.9 - NUTRITIONAL ANEMIA, UNSPECIFIED Status: Chronic (6) Obesity (BMI 30.0-34.9) Code(s): E66.9 - OBESITY, UNSPECIFIED Status: Chronic (7) Acute bacterial conjunctivitis Code(s): H10.30 - UNSPECIFIED ACUTE CONJUNCTIVITIS, UNSPECIFIED EYE Status: Acute Qualifiers: Laterality: bilateral Qualified Code(s): H10.33 - Unspecified acute conjunctivitis, bilateral - Plan cont current plan of care * will add clindamycin * [facility] declined for transfer * our ID doc does not think SJS * will DC to home and follow up with dermatology and wound care * medication reviewed as below * symptomatic treatment. Review of Systems - Review of Systems ENT: negative: Ear Pain, Ear Discharge, Nose Pain, Nose Discharge, Nose Congestion, Mouth Pain, Mouth Swelling, Throat Pain, Throat Swelling, Other Respiratory: negative: Cough, Dry, Shortness of Breath, Hemoptysis, SOB with Excertion, Pleuritic Pain, Sputum, Wheezing Cardiovascular: negative: chest pain, palpitations, orthopnea, paroxysmal nocturnal dyspnea, edema, light headedness, other Gastrointestinal: negative: Nausea, Vomiting, Abdominal Pain, Diarrhea, Constipation, Melena, Hematochezia, Other Genitourinary: negative: Dysuria, Frequency, Incontinence, Hematuria, Retention , Other Musculoskeletal: negative: Neck Pain, Shoulder Pain, Arm Pain, Back Pain, Hand Pain, Leg Pain, Foot Pain, Other - Medications/Allergies Allergies/Adverse Reactions: Allergies Allergy/AdvReac Type Severity Reaction Status Date / Time No Known Allergies Allergy Verified 12/22/17 15:58 Medications: Current Medications Acetaminophen (Tylenol) 650 mg PO Q4H PRN PRN Reason: Headache/Fever or Pain Hydrocodone Bitart/Acetaminophen ([place] 5/325) 1 tab PO Q4H PRN PRN Reason: Moderate Pain (4-6) Last Admin: 12/27/17 22:08 Dose: 1 tab Al Hydroxide/Mg Hydroxide (Maalox) 30 ml PO Q6H PRN PRN Reason: Heartburn or Indigestion Artificial Tears (Tears Renewed 15ml Bottle) 0 drop EA EYE PRN PRN PRN Reason: Dry Eyes Ciprofloxacin (Ciprofloxacin Hcl) 2 drop EA EYE BID [facility] Last Admin: 12/27/17 22:05 Dose: 2 drop Clindamycin HCl (Cleocin) 300 mg PO Q6H [facility] Cyanocobalamin (Vitamin B-12) 1,000 mcg PO DAILY [facility] Last Admin: 12/28/17 10:13 Dose: 1,000 mcg Cyclosporine (Neoral) 200 mg PO BID [facility] Last Admin: 12/28/17 10:19 Dose: 200 mg Diphenhydramine HCl (Benadryl) 25 mg IVP Q4H PRN PRN Reason: Itching Diphenhydramine HCl (Benadryl) 25 mg PO Q6H PRN PRN Reason: Itching & Insomnia Last Admin: 12/27/17 22:07 Dose: 25 mg Diphenhydramine HCl (Benadryl) 50 mg PO Q6HR PRN PRN Reason: Itching & Insomnia 2ND LINE Last Admin: 12/25/17 23:18 Dose: 50 mg Famotidine (Pepcid) 20 mg PO BID [facility] Last Admin: 12/28/17 10:13 Dose: 20 mg Fluconazole (Diflucan) 100 mg PO DAILY [facility] Last Admin: 12/28/17 10:13 Dose: 100 mg Guaifenesin (Robitussin Sf) 200 mg PO Q4H PRN PRN Reason: Cough Hydralazine HCl (Apresoline) 10 mg SLOW IVP Q4H PRN PRN Reason: Systolic BP > 180 Hydrochlorothiazide (Hydrochlorothiazide) 25 mg PO DAILY [facility] Last Admin: 12/28/17 10:13 Dose: 25 mg Labetalol HCl (Normodyne) 20 mg SLOW IVP Q4H PRN PRN Reason: Systolic BP > 180 Loperamide HCl (Imodium) 2 mg PO PRN PRN PRN Reason: Diarrhea/Loose Stools Magnesium Hydroxide (Milk Of Magnesium) 30 ml PO DAILYPRN PRN PRN Reason: Constipation Mineral Oil/White Petrolatum (Eucerin Cream) 0 gm TOP BIDPRN PRN PRN Reason: Dry Skin Morphine Sulfate (Morphine Sulfate) 4 mg IVP Q4H PRN PRN Reason: DRESSING CHANGES Last Admin: 12/27/17 10:28 Dose: 4 mg Ondansetron HCl (Zofran Odt) 4 mg PO Q6H PRN PRN Reason: Nausea/Vomiting Ondansetron HCl (Zofran) 4 mg IVP Q6H PRN PRN Reason: Nausea/Vomiting Phenol (Chloraseptic [place] 180 Ml Bot) 0 ml PO PRN PRN PRN Reason: Sore Throat Prednisone (Prednisone) 60 mg PO QA-[facility] Last Admin: 12/28/17 10:14 Dose: 60 mg Senna (Senokot) 2 tab PO HSPRN PRN PRN Reason: Constipation Silver Sulfadiazine (Silvadene) 0 gm TOP PRN PRN PRN Reason: WOUND CARE Sodium Chloride (Delta Nasal [place] 0.65%) 0 ml EA NARE QIDPRN PRN PRN Reason: Nasal Congestion Sodium Chloride (Flush - Normal Saline) 10 ml IVF Q12HR [facility] Last Admin: 12/28/17 10:14 Dose: Not Given Sodium Chloride (Flush - Normal Saline) 10 ml IVF PRN PRN PRN Reason: Saline Flush Zolpidem Tartrate (Ambien) 5 mg PO HSPRN PRN PRN Reason: Insomnia
[2017-12-28] MEDS ORDERED: Clindamycin 150 MG CAP PO SCH (12:00)
[2017-12-28 12:11] VITALS: BP 152/73; TEMP 98.5
--- NOTE | 2017-12-28 13:07 | ADD-DIS ---
ADDENDUM Please see my discharge summary dictated on 12/25/2017. This patient was planned for discharge to [facility] higher level of care because there was concern of underlying Arroyo-Philip syndrome ve rsus toxic epidermal necrolysis. On 12/25/2017, I spoke with doctors [place] [facility] [place]. Subsequently, we initiated transfer process to [facility] and I spoke with Burn Unit doctor there and they reviewed pictures of this patient's rash as well as later on ski n pathology report came back negative for Arroyo-Philip syndrome, it showed urticarial vasculitis a nd they also declined transfer. Subsequently, [facility] completely declined because of insurance reasons. At this point, we also reviewed with our ID doctor, Dr. Pruitt, and he is also not thinking that this patient has any Arroyo-Philip syndrome clinically. Pathology report is also not consistent with S tevens-Philip syndrome. This patient had conjunctivitis and that is why we started Ciplox ophthalmi c drops. Oncology started on cyclosporine and as there was culture for Staph aureus, that is why on the day of discharge, I started clindamycin 300 mg p.o. q.6 hourly. At this point, I advised this pa tient to follow up with primary care physician, oncologist and a coach builder and he can get second opinion in a higher level of center if needed, but at this point while in hospital, we are not doing anything further and he needs only wound care and that is why with help of case briefer, we are arran ging outpatient wound care as well. Patient is otherwise medically stable for discharge and he will follow up with the above-mentioned physician. Patient is seen and examined at bedside today. Please see my progress note from today for further de tails and patient agreed to go home today as well.
[2017-12-28] MEDS: HYDROcodone/Acetaminophen 5/325 mg Tablet PO PRN (13:56)
[2017-12-28] MEDS ORDERED: Ciprofloxacin 0.3% Ophth Drops 2.5 ml Bottle EA EYE SCH (21:00)
== END 2017-12-28 17:06 | disposition home or self-care (01) | DRG 607 ==
LOC: EDSTATUS 08:00 → ONC 14:21
PROVIDERS: ADMIT Internal Medicine Medical Oncology; ATTEND Internal Medicine
DX: L50.9 Urticaria, unspecified (principal); D69.3 Immune thrombocytopenic purpura; D59.1 Other autoimmune hemolytic anemias; I10 Essential (primary) hypertension; Z92.21 Personal history of antineoplastic chemotherapy; F17.220 Nicotine dependence, chewing tobacco, uncomplicated; E66.9 Obesity, unspecified; Z68.33 Body mass index [BMI] 33.0-33.9, adult; H10.33 Unspecified acute conjunctivitis, bilateral
CPT/HCPCS: 36415; 80048; 80053; 80074; 81001; 82607; 82746; 85025; 85652; 86140; A4216; J1200; J2270; J7050; J7502; J7506; J9310; S0028

== ENCOUNTER 2018-01-02 08:45 | Outpatient (CLI) | payer OTHER ==
--- NOTE | 2018-01-02 12:02 | HP ---
DATE OF SERVICE: 01/02/2018 HISTORY OF PRESENT ILLNESS: Mr. Roger Serna is a very pleasant 57-year- old gentleman who presents to the Wound Center for evaluation of lesions of the ventral surface of the right forearm, right back, and left hip and thigh. The patient was recently admitted to [facility] on 2017 for a rash . Prior to the patient's admission, the patient had undergone skin biopsy by Dr. Zhang of Dermatology. During the patient's hospital stay, Mr. Serna states, the rash was considered to be secondary to Arroyo-Philip syndrome versus toxic epidermal necrolysis. 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 During the patient's hospital stay, dressing changes of Silvadene were initiated. The patient states he has been receiving dressing changes of Silvadene since his discharge from the hospital on 2017 with the assistance of his . PAST MEDICAL HISTORY: 1. ITP. 2. Autoimmune hemolytic anemia. 3. Hypertension. PAST SURGICAL HISTORY: 1. Left eye surgery as a child. 2. Laparoscopic splenectomy. 3. Cholecystectomy. MEDICATIONS: 1. Famotidine. 2. Hydrocodone. 3. Vitamin B12. 4. Clindamycin. 5. Ciprofloxacin eyedrops. 6. Cyclosporine. 7. Fluconazole. ALLERGIES: No known diagnosed allergies. SOCIAL HISTORY: Significant for the use of snuff. The patient states that he dips one-half can of snuff per day and has done so for 30 years. The patient also admits to the social consumption of alcohol for the past 30 years. FAMILY HISTORY: Negative for diabetes mellitus or coronary artery disease. REVIEW OF SYSTEMS: The patient states that he has a history of ITP for which he receives blood work on a yearly basis as per Dr. Simon. The patient states that he has had blood work on a yearly basis for the past 5 years. The patient states that prior to his admission to [facility] , he presented to an outlying Emergency Department for symptoms of fatigue, malaise, and other flu-like symptomatology. PHYSICAL EXAMINATION: VITAL SIGNS: Temperature 98.0, pulse 62, respirations 18, blood pressure 158/ 74. GENERAL: A 57-year-old gentleman sitting on table in examination room in no acute distress. HEENT: Normocephalic, atraumatic. NECK: No nuchal rigidity. CHEST: Clear to auscultation. CARDIAC: Regular rate and rhythm. ABDOMEN: Soft. EXTREMITIES: No clubbing or cyanosis. NEUROLOGIC: Grossly nonfocal. SKIN: Lesions of the ventral surface of the right forearm, right back, and left hip and thigh are present. No purulent drainage is associated with any of the lesions. No cellulitis associated with any of the lesions is appreciated. No maceration of the skin of the periwound of any of the lesions is noted. ASSESSMENT AND PLAN: 1. Lesions of ventral surface of right forearm, right back, and left hip and thigh as described above. Dressing changes of Silvadene and gauze will be continued on a daily basis after cleansing and irrigation. The patient is to continue p.o. antibiotics as prescribed at the time of discharge. I will see Mr. Serna again in 1 week if his lesions are still present. The patient states that he has a follow-up appointment with Dermatology later today. 2. Idiopathic thrombocytopenic purpura, status post laparoscopic splenectomy. 3. Autoimmune hemolytic anemia. The patient states he received treatment with Rituxan as per Dr. Simon. 4. Hypertension. [facility]
[2018-01-02] MEDS ORDERED: Sodium Chloride 0.9% 15 ML NEB ONE (14:26)
== END 2018-01-02 08:46 | disposition home or self-care (01) ==
LOC: WCC 08:45
PROVIDERS: ATTEND Family Medicine
DX: L98.9 Disorder of the skin and subcutaneous tissue, unspecified (principal); D69.3 Immune thrombocytopenic purpura; D59.1 Other autoimmune hemolytic anemias; I10 Essential (primary) hypertension
CPT/HCPCS: 97602; 99203; A4218; G0463

== ENCOUNTER 2021-05-07 09:34 | Outpatient (CLI) | payer OTHER | END 2021-05-07 09:35 | disposition home or self-care (01) | LOC: PET 09:34 | PROVIDERS: ATTEND Internal Medicine Medical Oncology | DX: C76.0 Malignant neoplasm of head, face and neck (principal); C79.89 Secondary malignant neoplasm of other specified sites | CPT/HCPCS: 78815; A9552 ==

== ENCOUNTER 2021-05-20 08:15 | Day surgery (SDC) | payer OTHER ==
[2021-05-19 14:30] VITALS: BMI 31.1
[~2021-05-20 08:15] MED LIST: Fentanyl 100 MCG/2 ML VIAL ONE; Midazolam HCl 2 mg/2 ml Vial ONE; Sodium Bicarbonate 2.5 MEQ/5 ML VIAL ONE
[2021-05-20 08:27] LABS: Prothrombin Time 12.7 sec (12.0-14.7)
[2021-05-20 12:18] VITALS: BP 155/78; TEMP 96.9
[2021-05-20] MEDS ORDERED: Prevnar 13-Val Conj/PF 0.5 ML SYRINGE IM ONE (14:45)
== END 2021-05-20 11:41 | disposition home or self-care (01) ==
LOC: CT 08:15
PROVIDERS: ATTEND Internal Medicine Medical Oncology
PROC: 079 Lymphatic and Hemic Systems, Drainage (ICD-10-PCS; principal; 2021-05-20)
DX: R59.9 Enlarged lymph nodes, unspecified (principal); C09.8 Malignant neoplasm of overlapping sites of tonsil; I10 Essential (primary) hypertension; D64.9 Anemia, unspecified; Z79.899 Other long term (current) drug therapy; Z88.8 Allergy status to other drugs, medicaments and biological substances
CPT/HCPCS: 49060; 77012; 85610; 85730; 88307; 88333; 88334; 88341; 88342; 88360; J2250; J3010

== ENCOUNTER 2021-06-29 14:25 | Outpatient (CLI) | payer OTHER ==
[2021-06-29 16:00] LABS: #Eosinphils 0.2 10x3/uL (0.0-0.5); #Monocytes 0.7 10x3/uL (0.0-1.1); #Neutrophils 4.7 10x3/uL (1.5-8.4); %Basophils 0.4 % (0.0-2.0); %Lymphocytes 28.2 % (18.0-47.0); %Monocytes 9.3 % (0.0-10.0); %Neutrophils 59.8 % (40.0-75.0); Hemoglobin 12.8 g/dL (13.5-17.5); Mean Corpuscular HGB CONC 33.2 g/dL (32.0-36.0); Mean Corpuscular Volume 96.5 fl (81.2-95.1); Mean Platelet Volume 11.3 fl (7.4-10.4); Platelet Count 232 10x3/uL (150-450); RBC Distribution Width 12.8 % (11.5-14.5); White Blood Cell (WBC) Count 7.9 10x3/uL (3.5-10.5)
[2021-06-30 07:44] LABS: SARS-CoV-2 PCR by NAA Not Detected (NotDetected)
== END 2021-06-29 14:26 | disposition home or self-care (01) ==
LOC: LABBT 14:25
PROVIDERS: ATTEND Specialist
DX: Z01.818 Encounter for other preprocedural examination (principal); Z20.822 Contact with and (suspected) exposure to COVID-19
CPT/HCPCS: 85025; 93005; 93010; U0003; U0005

== ENCOUNTER 2021-07-02 05:52 | Day surgery (SDC) | payer OTHER ==
[2021-07-01 14:04] VITALS: BMI 29.5
[2021-07-02] MEDS ORDERED: Ketorolac Tromethamine 30 MG/ML VIAL ONE (06:20)
[2021-07-02] MEDS ORDERED: Acetaminophen 500 MG TAB ONE (06:20)
[2021-07-02] MEDS ORDERED: ceFAZolin 2 GM/Dextrose 50 ML IVPB ONE (06:20)
[2021-07-02] MEDS ORDERED: Fentanyl 100 MCG/2 ML VIAL ONE (07:08)
[2021-07-02] MEDS ORDERED: Lidocaine 1% w/Epinephrine 1:100K 20 ML VIAL ONE (07:45)
[2021-07-02] MEDS ORDERED: Bupivacaine 0.25% HCL 30 ML VIAL ONE (07:45)
[2021-07-02] MEDS ORDERED: Midazolam HCl 2 mg/2 ml Vial ONE (08:00)
[2021-07-02] MEDS ORDERED: ePHEDrine 50 MG/ML VIAL ONE (08:35)
[2021-07-02] MEDS ORDERED: Rocuronium Bromide 10 MG/ML (10ML VIAL) ONE (08:35)
[2021-07-02] MEDS ORDERED: Lidocaine 1% PF 5 ML VIAL ONE (08:35)
[2021-07-02] MEDS ORDERED: Glycopyrrolate 0.2 MG/ML 5 ML SYRINGE ONE (08:35)
[2021-07-02] MEDS ORDERED: Succinylcholine 200 MG/10 ml SYRINGE FS ONE (08:35)
[2021-07-02] MEDS ORDERED: Ondansetron PF 4 MG/2 ML Vial ONE (08:35)
[2021-07-02] MEDS ORDERED: PROPOFOL 200 MG/20 ML VIAL ONE (08:35)
== END 2021-07-02 11:30 | disposition home or self-care (01) ==
LOC: SDC 05:52
PROVIDERS: ATTEND Specialist
PROC: 0JH60WZ Insertion of Totally Implantable Vascular Access Device into Chest Subcutaneous Tissue and Fascia, Open Approach (ICD-10-PCS; principal; 2021-07-02)
PROC: 0DH63UZ Insertion of Feeding Device into Stomach, Percutaneous Approach (ICD-10-PCS; principal; 2021-07-02)
PROC: 02HV33Z Insertion of Infusion Device into Superior Vena Cava, Percutaneous Approach (ICD-10-PCS; principal; 2021-07-02)
DX: C09.9 Malignant neoplasm of tonsil, unspecified (principal); R13.10 Dysphagia, unspecified; D89.89 Other specified disorders involving the immune mechanism, not elsewhere classified; I10 Essential (primary) hypertension; F17.290 Nicotine dependence, other tobacco product, uncomplicated; Z79.899 Other long term (current) drug therapy; Z88.8 Allergy status to other drugs, medicaments and biological substances
CPT/HCPCS: 71045; C1788; J0690; J1642; J1885; J2250; J2405; J2704; J3010; J3490; S0020

== ENCOUNTER 2021-10-27 10:00 | Outpatient (CLI) | payer OTHER | END 2021-10-27 10:01 | disposition home or self-care (01) | LOC: PET 10:00 | PROVIDERS: ATTEND Radiology Radiation Oncology | DX: C09.9 Malignant neoplasm of tonsil, unspecified (principal); C76.0 Malignant neoplasm of head, face and neck; R91.1 Solitary pulmonary nodule | CPT/HCPCS: 78815; A9552 ==